=== PATIENT | female | born 1950 | race Caucasian/White ===

== ENCOUNTER 2017-01-21 10:39 | Outpatient (CLI) | payer MEDICARE, BC | END 2017-01-21 10:40 | disposition home or self-care (01) | DX: E11.9 Type 2 diabetes mellitus without complications (principal); Z79.899 Other long term (current) drug therapy; K21.9 Gastro-esophageal reflux disease without esophagitis; I10 Essential (primary) hypertension; E78.2 Mixed hyperlipidemia ==

== ENCOUNTER 2017-01-23 08:13 | Outpatient (CLI) | payer MEDICARE, BC | END 2017-01-23 08:14 | disposition home or self-care (01) | DX: E11.9 Type 2 diabetes mellitus without complications (principal); Z79.899 Other long term (current) drug therapy; E78.2 Mixed hyperlipidemia; K21.9 Gastro-esophageal reflux disease without esophagitis; N18.9 Chronic kidney disease, unspecified; I12.9 Hypertensive chronic kidney disease with stage 1 through stage 4 chronic kidney disease, or unspecified chronic kidney disease ==

== ENCOUNTER 2017-02-13 11:42 | Outpatient (CLI) | payer MEDICARE, BC | END 2017-02-13 11:43 | disposition home or self-care (01) | DX: M17.11 Unilateral primary osteoarthritis, right knee (principal) ==

== ENCOUNTER 2017-03-19 10:05 | Outpatient (CLI) | payer MEDICARE, BC ==
--- NOTE | 2017-04-03 16:14 | Mammography Report ---
DIGITAL SCREENING MAMMOGRAM: 03/19/2017 CLINICAL INDICATION: A 66-year-old, for screening. COMPARISON: The patient reports having had previous mammograms in [place], but cannot recall where they were performed. If records in your office indicate where these were performed, we would be happ y to try to obtain them for direct comparison. Otherwise, this will serve as a new baseline. TECHNIQUE: Routine CC and MLO projections were obtained of the breasts. FINDINGS: The breasts demonstrate scattered fibroglandular densities bilaterally. There is bilateral subareolar nodularity. Further evaluation with spot compression views and possible bilateral ultraso und is recommended. A few coarse, typically benign calcifications are present. No suspicious clustere d microcalcifications, or regions of architectural distortion are identified. IMPRESSION: INCOMPLETE EXAMINATION. RECOMMENDATION: ADDITIONAL EVALUATION OF BOTH BREASTS WITH SPOT COMPRESSION VIEWS AND POSSIBLE ULTRAS OUNDS. BIRADS CATEGORY 0-INCOMPLETE. STANDARD QUALIFYING STATEMENTS 1. This examination was reviewed with the aid of Computer-Aided Detection (CAD). 2. A negative or benign imaging report should not delay biopsy if clinically suspicious findings are present. Consider surgical consultation if warranted. More than 5% of cancers are not identified by alejandra osborne. 3. Dense breasts may obscure an underlying neoplasm. JOB #: [id number] EXT JOB #:[id number]
== END 2017-03-19 10:06 | disposition home or self-care (01) ==
LOC: DI.S 10:05
PROVIDERS: ATTEND Internal Medicine
DX: Z12.31 Encounter for screening mammogram for malignant neoplasm of breast (principal); N63 Unspecified lump in breast
CPT/HCPCS: 77067

== ENCOUNTER 2017-04-10 08:13 | Outpatient (CLI) | payer MEDICARE, BC | END 2017-04-10 08:14 | disposition home or self-care (01) | LOC: LAB.F 08:13 | PROVIDERS: ATTEND Internal Medicine | DX: E11.65 Type 2 diabetes mellitus with hyperglycemia (principal) | CPT/HCPCS: 36415; 82947 ==

== ENCOUNTER 2017-05-20 13:56 | Outpatient (CLI) | payer MEDICARE, BC ==
--- NOTE | 2017-05-20 15:12 | Ultrasound Report ---
RIGHT BREAST ULTRASOUND: 05/20/2017 CLINICAL INDICATION: Persistent nodule on diagnostic mammogram. TECHNIQUE: Real-time scanning was performed with financial representative static images obtained. FINDINGS: Ultrasound of the right lower breast was performed. At the 6 o'clock position, 1 cm from the nipple, there is a simple cyst, measuring 8 x 7 x 6 mm. No sonographically suspicious findings a re identified. IMPRESSION: BENIGN FINDINGS, WITH A SIMPLE CYST ACCOUNTING FOR THE MAMMOGRAPHIC ABNORMALITY. RECOMMENDATION: Routine annual screening unless otherwise clinically indicated. BIRADS CATEGORY 2 - BENIGN FINDINGS. JOB #: [id number] EXT JOB #:[id number]
--- NOTE | 2017-05-20 15:13 | Mammography Report ---
DIAGNOSTIC BILATERAL MAMMOGRAM: 05/20/2017 CLINICAL INDICATION: Bilateral retroareolar nodules. TECHNIQUE: Bilateral true lateral and spot compression views. COMPARISON: 03/19/2017 FINDINGS: The breasts again demonstrate scattered fibroglandular densities bilaterally. In the left breast, the questioned retroareolar nodularity dissipates on additional compression. No underlying mass lesion or architectural distortion is seen. In the right breast, a 7-mm nodule persists in the 6 o'clock subareolar position. No associated calc ifications are seen. Please also refer to right breast ultrasound of the same day. IMPRESSION: BENIGN FINDINGS. RECOMMENDATION: Routine annual screening unless otherwise clinically indicated. BIRADS CATEGORY 2 - BENIGN FINDINGS. STANDARD QUALIFYING STATEMENTS 1. This examination was reviewed with the aid of Computer-Aided Detection (CAD). 2. A negative or benign imaging report should not delay biopsy if clinically suspicious findings are present. Consider surgical consultation if warranted. More than 5% of cancers are not identified by i maging. 3. Dense breasts may obscure an underlying neoplasm. JOB #: [id number] EXT JOB #:[id number]
== END 2017-05-20 13:57 | disposition home or self-care (01) ==
LOC: DI 13:56
PROVIDERS: ATTEND Internal Medicine
DX: N60.01 Solitary cyst of right breast (principal)
CPT/HCPCS: 76642; G0204; 77066

== ENCOUNTER 2017-06-14 09:35 | Outpatient (CLI) | payer MEDICARE, BC ==
[2017-06-14 18:55] LABS: HEMOGLOBIN A1C 0.64 g/dL
== END 2017-06-14 09:36 | disposition home or self-care (01) ==
LOC: LAB.F 09:35
PROVIDERS: ATTEND Internal Medicine
DX: E11.65 Type 2 diabetes mellitus with hyperglycemia (principal)
CPT/HCPCS: 36415; 83036

== ENCOUNTER 2017-08-28 09:48 | Outpatient (CLI) | payer MEDICARE, BC ==
[2017-08-28 17:36] LABS: BASOPHILS % (AUTO) 0.7 %; EOSINOPHILS # (AUTO) 0.2 10^3/uL (0.0-0.7); EOSINOPHILS % (AUTO) 3.3 %; HCT - HEMATOCRIT 34.8 % (37.0-47.0); HGB - HEMOGLOBIN 11.2 g/dL (12.0-16.0); LYMPHOCYTES % (AUTO) 30.6 %; MEAN CORPUSCULAR HEMOGLOBIN 25.5 pg (27.0-31.0); MEAN CORPUSCULAR HGB CONC 32.3 g/dL (32.0-36.0); MEAN PLATELET VOLUME 9.2 fL (7.9-10.8); MONOCYTES # (AUTO) 0.7 10^3/uL (0.0-1.0); MONOCYTES % (AUTO) 9.9 %; NEUTROPHILS # (AUTO) 3.7 10^3/uL (1.5-6.6); NEUTROPHILS % (AUTO) 55.5 %; NUCLEATED RED BLOOD CELLS AUTO 0.1 /100WBC; RED CELL DISTRIBUTION WIDTH 14.8 % (12.0-15.0); UNCORRECTED WHITE BLOOD COUNT 6.6 x10^3/uL; WHITE BLOOD COUNT 6.6 x10^3/uL (4.8-10.8)
[2017-08-28 18:13] LABS: HEMOGLOBIN A1C 0.68 g/dL
[2017-08-28 18:33] LABS: ALBUMIN/GLOBULIN RATIO 0.8 (1.0-2.2); BILIRUBIN,TOTAL 0.4 mg/dL (0.2-1.0); CALCIUM 8.9 mg/dL (8.5-10.3); CREATININE 1.2 mg/dL (0.4-1.0); POTASSIUM 4.7 mmol/L (3.5-5.0); TOTAL PROTEIN 7.2 g/dL (6.7-8.2)
== END 2017-08-28 09:49 | disposition home or self-care (01) ==
LOC: LAB.F 09:48
PROVIDERS: ATTEND Internal Medicine
DX: E11.9 Type 2 diabetes mellitus without complications (principal); I10 Essential (primary) hypertension
CPT/HCPCS: 36415; 80053; 83036; 85025

== ENCOUNTER 2017-09-11 10:12 | Outpatient (CLI) | payer MEDICARE, BC ==
[2017-09-11 17:53] LABS: IMMATURE RETIC FRACTION 0.44; RED BLOOD COUNT 4.38 10^6/uL (4.20-5.40)
== END 2017-09-11 10:13 | disposition home or self-care (01) ==
LOC: LAB.F 10:12
PROVIDERS: ATTEND Internal Medicine
DX: D64.9 Anemia, unspecified (principal)
CPT/HCPCS: 36415; 82607; 82728; 83010; 85044; 86880

== ENCOUNTER 2017-10-25 08:00 | Outpatient (CLI) | payer MEDICARE, BC | END 2017-10-25 23:59 | disposition home or self-care (01) | LOC: LAB.R 08:00 | PROVIDERS: ATTEND Surgery | DX: D64.9 Anemia, unspecified (principal) | CPT/HCPCS: 82270 ==

== ENCOUNTER 2017-11-01 06:12 | Day surgery (SDC) | payer MEDICARE, BC ==
[2017-11-01] MEDS ORDERED: LACTATED RINGERS 1,000 ML IV ONE (06:59)
[2017-11-01] MEDS ORDERED: BENZOCAINE/TETRACAINE/BUTAMBEN SPRAY 56 GM TOP ONE (07:43)
[2017-11-01] MEDS ORDERED: LIDOCAINE-MPF 2% 5 ML VIAL IM ONE (08:04)
[2017-11-01] MEDS ORDERED: PROPOFOL 200 MG/20 ML VIAL IVP ONE (08:04)
[2017-11-01 08:32] VITALS: BP 149/80
== END 2017-11-01 06:13 | disposition home or self-care (01) ==
LOC: SDS 06:12
PROVIDERS: ATTEND Surgery
PROC: 0DB68ZX Excision of Stomach, Via Natural or Artificial Opening Endoscopic, Diagnostic (ICD-10-PCS; 2017-11-01)
PROC: 0DB48ZX Excision of Esophagogastric Junction, Via Natural or Artificial Opening Endoscopic, Diagnostic (ICD-10-PCS; 2017-11-01)
PROC: 0DB98ZX Excision of Duodenum, Via Natural or Artificial Opening Endoscopic, Diagnostic (ICD-10-PCS; principal; 2017-11-01 07:30)
DX: D50.9 Iron deficiency anemia, unspecified (principal); E11.9 Type 2 diabetes mellitus without complications; I10 Essential (primary) hypertension; E78.5 Hyperlipidemia, unspecified; Z98.84 Bariatric surgery status; F17.290 Nicotine dependence, other tobacco product, uncomplicated
CPT/HCPCS: 43239; A9270; J7120

== ENCOUNTER 2018-01-02 09:25 | Outpatient (CLI) | payer MEDICARE, BC ==
[2018-01-02 17:32] LABS: BILIRUBIN,URINE NEGATIVE (NEGATIVE); GLUCOSE, URINE (UA) NEGATIVE (NEGATIVE); KETONES,URINE (UA) NEGATIVE (NEGATIVE); LEUKOCYTE ESTERASE, URINE SMALL (NEGATIVE); NITRITE,URINE POSITIVE (NEGATIVE); OCCULT BLOOD,URINE TRACE-INTA (NEGATIVE); PH,URINE 5.5 PH (5.0-7.5); PROTEIN,URINE 100 mg/dL (NEGATIVE); UROBILINOGEN,URINE 0.2 (NORMAL) E.U./dL (NORMAL)
[2018-01-02 17:33] LABS: CLARITY,URINE CLOUDY (CLEAR)
[2018-01-02 17:45] LABS: BASOPHILS # (AUTO) 0.1 10^3/uL (0.0-0.1); BASOPHILS % (AUTO) 1.2 %; EOSINOPHILS # (AUTO) 0.2 10^3/uL (0.0-0.7); EOSINOPHILS % (AUTO) 3.2 %; HGB - HEMOGLOBIN 11.3 g/dL (12.0-16.0); LYMPHOCYTES % (AUTO) 28.4 %; MEAN CORPUSCULAR HEMOGLOBIN 25.2 pg (27.0-31.0); MEAN CORPUSCULAR HGB CONC 31.2 g/dL (32.0-36.0); MEAN CORPUSCULAR VOLUME 80.8 fL (81.0-99.0); MEAN PLATELET VOLUME 9.3 fL (7.9-10.8); MONOCYTES # (AUTO) 0.5 10^3/uL (0.0-1.0); MONOCYTES % (AUTO) 6.9 %; NEUTROPHILS # (AUTO) 4.2 10^3/uL (1.5-6.6); NEUTROPHILS % (AUTO) 60.3 %; PLT - PLATELET COUNT 242 10^3/uL (130-450); RED BLOOD COUNT 4.46 10^6/uL (4.20-5.40); RED CELL DISTRIBUTION WIDTH 18.5 % (12.0-15.0)
[2018-01-02 17:50] LABS: HB2 TOTAL 12.2 g/dL; HEMOGLOBIN A1C 0.63 g/dL; HEMOGLOBIN A1C % 6.9 % (4.6-6.2)
[2018-01-02 18:21] LABS: RBC,URINE 0-5 /HPF (0-5); SQUAMOUS EPITHELIAL CELL,UR RARE Squamous (<= Few); WBC CLUMPS,URINE PRESENT
[2018-01-02 18:22] LABS: BACTERIA,URINE Many /HPF (None Seen)
== END 2018-01-02 09:26 | disposition home or self-care (01) ==
LOC: LAB.F 09:25
PROVIDERS: ATTEND Internal Medicine
DX: D64.9 Anemia, unspecified (principal); E11.9 Type 2 diabetes mellitus without complications; I10 Essential (primary) hypertension; N20.0 Calculus of kidney; Z79.899 Other long term (current) drug therapy
CPT/HCPCS: 36415; 81001; 81003; 82728; 83036; 85025; 87086

== ENCOUNTER 2018-01-28 08:51 | Emergency (ER) | payer MEDICARE, BC ==
[2018-01-28] MEDS ORDERED: DEXAMETHASONE 10 MG/ML VIAL IVP STA (09:30)
[2018-01-28] MEDS ORDERED: diphenhydrAMINE INJ 50 MG/ML VIAL IVP STA (09:30)
--- NOTE | 2018-01-28 09:36 | ED Physician Documentation ---
History of Present Illness - Stated complaint Stated Complaint: FACE SWELLING/CANT SWALLOW - Chief complaint Chief Complaint: Allergic Rx - History obtained from History obtained from: Patient - History of Present Illness Timing: Today (Present when she awoke.) - Additonal information Additional information: The patient is a 67-year-old female with history of hypertension, on Benazepril , who awoke this morning with facial swelling and swelling in her throat. She denies shortness of breath, but she does report difficulty swallowing. She reports having similar swelling involving mostly the right side of her face one week ago, but she did not have throat involvement at that time. Her symptoms are slightly better now than when she first awoke this morning. Review of Systems Constitutional: denies: Fever Eyes: denies: Irritation Nose: denies: Congestion Throat: reports: Sore throat Cardiac: denies: Chest pain / pressure Respiratory: denies: Dyspnea, Cough GI: denies: Abdominal Pain, Nausea, Vomiting Skin: denies: Rash Musculoskeletal: denies: Extremity swelling Neurologic: denies: Headache PD PAST MEDICAL HISTORY - Past Medical History Cardiovascular: Hypertension Respiratory: None Endocrine/Autoimmune: Type 2 diabetes GI: GERD : Renal insuffiency HEENT: Chronic vision loss Psych: Depression Musculoskeletal: Rheumatoid arthritis Derm: None - Past Surgical History Ortho: Carpal Tunnel surgery /REGIONAL CRA: Other - Present Medications Home Medications: Ambulatory Orders Medication Instructions Recorded Confirmed Benazepril HCl 10 mg PO DAILY 10/28/17 11/01/17 Gemfibrozil 600 mg PO BID 10/28/17 11/01/17 Glimepiride 1 mg PO DAILY 10/28/17 11/01/17 Omeprazole [PriLOSEC] 20 mg PO DAILY 10/28/17 11/01/17 Atorvastatin [Lipitor] 1 DAILY 11/01/17 Blood Pressure Test Kit-Large 1 each MC TID #1 kit 01/28/18 [Blood Pressure Monitor] Losartan [Cozaar] 50 mg PO DAILY #20 tablet 01/28/18 - Allergies Allergies/Adverse Reactions: Allergies Allergy/AdvReac Type Severity Reaction Status Date / Time Penicillins Allergy Hives Verified 10/28/17 16:52 PD ED PE NORMAL - Vitals Vital signs reviewed: Yes (borderline systolic hypertension initially.) - General General: Alert and oriented X 3, Well developed/nourished, Other (Repeatedly trying to clear her throat.) - HEENT HEENT: Atraumatic, EOMI, Ears normal, Other (There is lower facial swelling, much more on the right than the left. Oropharynx is edematous with significant swelling of the uvula and soft palate.) - Neck Neck: Supple, no meningeal sign, No adenopathy - Cardiac Cardiac: RRR - Respiratory Respiratory: Clear bilaterally - Abdomen Abdomen: Soft, Non tender - Derm Derm: No rash - Extremities Extremities: No edema, No calf tenderness / cord - Neuro Neuro: Alert and oriented X 3, No motor deficit Results - Vitals Vitals: Vital Signs - 24 hr 01/28/18 01/28/18 08:56 12:42 Temperature 35.7 C L 36.8 C Heart Rate 68 68 Respiratory 16 18 Rate Blood Pressure 137/67 H 129/67 O2 Saturation 97 94 Oxygen O2 Source Room air PD MEDICAL DECISION MAKING - ED course Complexity details: re-evaluated patient, considered differential, d/w patient, d/w PMD ED course: The patient's presentation is most consistent with angioedema caused by JESSY inhibitor medication. Treatment in the emergency department included administration of dexamethasone 10 mg IV, and Benadryl 50 mg IV. She was monitored for several hours with airway equipment on standby. Her angioedema gradually improved over the course of the next 3 hours. I discussed her condition with Fartun Estrada in Dr. Abdi's office. After that discussion, the patient's antihypertensive medication was changed to losartan 50 mg daily. The patient is discharged with instructions to discontinue benazepril, and replace her antihypertensive medication with losartan. She was also instructed to check her blood pressure 3 times daily and record the results for Dr. Abdi. I discussed with her potentially worrisome signs or symptoms that should prompt reevaluation in the emergency department. Departure - Departure Disposition: 01 Home, Self Care Clinical Impression: Angio-edema Qualifiers: Encounter type: initial encounter Qualified Code(s): T78.3XXA - Angioneurotic edema, initial encounter Condition: Stable Instructions: ED Angioedema Follow-Up: Joe Abdi MD [Primary Care Provider] - Prescriptions: Blood Pressure Test Kit-Large [Blood Pressure Monitor] 1 each MC TID #1 kit Losartan [Cozaar] 50 mg PO DAILY #20 tablet Comments: Discontinue benazepril. Take losartan 50 mg daily as prescribed. Check your blood pressure 3 times daily and record for Dr. Abdi. Call to schedule follow-up appointment. Return to the emergency department if you develop increasing facial swelling, difficulty swallowing, shortness of breath, or otherwise worsening symptoms. Discharge Date/Time: 01/28/18 13:10
[2018-01-28 12:43] VITALS: BP 129/67
== END 2018-01-28 13:10 | disposition home or self-care (01) ==
LOC: ED 08:51
DX: T78.3XXA Angioneurotic edema, initial encounter (principal); I10 Essential (primary) hypertension; E11.9 Type 2 diabetes mellitus without complications; Z79.84 Long term (current) use of oral hypoglycemic drugs
CPT/HCPCS: 96374; 99283; J1200

== ENCOUNTER 2018-03-12 10:06 | Outpatient (CLI) | payer MEDICARE, BC ==
[2018-03-12 18:27] LABS: CHOL/HDL RATIO 4.8 (<4.4); CHOLESTEROL 150 mg/dL; HDL CHOLESTEROL 31 mg/dL; LDL CHOLESTEROL,CALCULATED 68 mg/dL; LDL/HDL RATIO 2.2 (<4.4); VLDL CHOLESTEROL 51 mg/dL
== END 2018-03-12 10:07 | disposition home or self-care (01) ==
LOC: LAB.F 10:06
PROVIDERS: ATTEND Internal Medicine
DX: D64.9 Anemia, unspecified (principal); E78.5 Hyperlipidemia, unspecified
CPT/HCPCS: 36415; 80061; 82728; 83721; 85025

== ENCOUNTER 2018-03-14 11:12 | Outpatient (CLI) | payer MEDICARE, BC ==
[2018-03-14 18:11] LABS: BASOPHILS % (AUTO) 0.6 %; EOSINOPHILS # (AUTO) 0.2 10^3/uL (0.0-0.7); EOSINOPHILS % (AUTO) 2.4 %; HGB - HEMOGLOBIN 12.7 g/dL (12.0-16.0); LYMPHOCYTES # (AUTO) 2.5 10^3/uL (1.5-3.5); LYMPHOCYTES % (AUTO) 33.8 %; MEAN CORPUSCULAR HEMOGLOBIN 29.1 pg (27.0-31.0); MEAN CORPUSCULAR HGB CONC 33.1 g/dL (32.0-36.0); MEAN PLATELET VOLUME 8.7 fL (7.9-10.8); MONOCYTES # (AUTO) 0.5 10^3/uL (0.0-1.0); MONOCYTES % (AUTO) 6.5 %; NEUTROPHILS # (AUTO) 4.2 10^3/uL (1.5-6.6); NEUTROPHILS % (AUTO) 56.7 %; PLT - PLATELET COUNT 249 10^3/uL (130-450); RED BLOOD COUNT 4.38 10^6/uL (4.20-5.40); RED CELL DISTRIBUTION WIDTH 16.4 % (12.0-15.0); WHITE BLOOD COUNT 7.4 x10^3/uL (4.8-10.8)
== END 2018-03-14 11:13 | disposition home or self-care (01) ==
LOC: LAB.F 11:12
PROVIDERS: ATTEND Internal Medicine
DX: D64.9 Anemia, unspecified (principal)
CPT/HCPCS: 36415; 85025

== ENCOUNTER 2018-04-24 11:28 | Outpatient (CLI) | payer MEDICARE, BC ==
[2018-04-24] MEDS ORDERED: REGADENOSON 0.4 MG/5 ML SYRINGE IVP ONE ×2 (13:30→15:16)
--- NOTE | 2018-04-24 16:58 | Nuclear Medicine Report ---
Procedure Date: 04/24/2018 Accession Number: [id number] / [id number] Procedure: NM - Myocardial Perfusion STR/RST CPT Code: FULL RESULT: EXAM: SINGLE-ISOTOPE PHARMACOLOGICAL STRESS TEST WITH REGADENOSON. SINGLE-ISOTOPE AND ONE-DAY REST/STRESS MYOCARDIAL PERFUSION SCANS WITH TOMOGRAPHIC IMAGING, QUANTITATIVE ANALYSIS, WALL MOTION ANALYSIS AND CALCULATION OF EJECTION FRACTION. EXAM DATE: 04/24/2018 03:19 PM. CLINICAL HISTORY: HYPERLIPIDEMIA. COMPARISON: None. TECHNIQUE: After the intravenous administration of 9.2 mCi of Tc-99m sestamibi, a rest myocardial perfusion scan was done with tomography. Motion correction was applied when appropriate. After an appropriate delay, pharmacological stress was performed with the infusion of 0.4 mg regadenoson per protocol. According to protocol, 42.1 mCi of Tc-99m sestamibi was injected for stress myocardial perfusion scan. Motion correction was applied when appropriate. Gated tomographic images were obtained for wall motion analysis and computation of left ventricular ejection fraction. FINDINGS: Perfusion images: Left ventricular chamber size is normal at rest and unchanged at stress. No convincing fixed perfusion deficits. Probable mild apical third inferior wall diaphragmatic attenuation artifact and mid anterior wall breast attenuation artifact. No convincing reversible perfusion deficits. Gated images: No convincing focal wall motion abnormality. The left ventricular ejection fraction is estimated at 65% (normal > 50%). IMPRESSION: 1. No convincing reversible perfusion deficits to indicate stress-induced ischemia. 2. No convincing fixed perfusion deficits. 3. Left ventricular ejection fraction of 65% (normal > 50%). RADIA
--- NOTE | 2018-04-24 17:17 | CARDIAC PROCEDURE NOTE ---
DATE OF SERVICE: 04/24/2018 Physician: MG Chin PCP: Joe Abdi M.D. PROCEDURE: Pharmacologic cardiac stress test. PROCEDURE REASON: Preoperative orthopedic surgery. CARDIAC RISK FACTORS: Age, hypertension, hyperlipidemia, and diabetes. PREVIOUS CARDIAC PROCEDURES: MPS. CLINICAL HISTORY: A 67-year-old female without known coronary artery disease. INITIAL RESTING VITAL SIGNS: Blood pressure 140/74, heart rate 60, height 64 inches, weight 245 pounds, BMI 40.95. PROCEDURE AND FINDINGS: Patient identity and date verified. Consent signed. Pharmaceutical checked. Pharmacologic stress testing was performed with Lexiscan at a dose of 0.4 mg over 10 seconds. The heart rate increased to 89 beats per minute from the infusion. Blood pressure response was normal during the stress procedure. The patient developed mild infusion-related symptoms, which include shortness of air, and resolved spontaneously. The resting ECG demonstrated normal sinus rhythm with no ST or T-wave changes. There was no ST depression with stress. There was occasional PAC ectopy. FINAL IMPRESSION 1. Negative electrocardiogram for ischemia in the setting of vasodilator stress. 2. Nondiagnostic stress test for angina. 3. A few premature atrial contractions. 4. Await myocardial perfusion report. TD: 04/24/2018 14:27
[2018-04-24 18:11] VITALS: BP 140/74
== END 2018-04-24 11:29 | disposition home or self-care (01) ==
LOC: DI 11:28
PROVIDERS: ATTEND Internal Medicine
DX: Z01.810 Encounter for preprocedural cardiovascular examination (principal); E78.5 Hyperlipidemia, unspecified; I10 Essential (primary) hypertension; E11.9 Type 2 diabetes mellitus without complications
CPT/HCPCS: 78452; 93017; A9500; J2785

== ENCOUNTER 2019-03-23 11:34 | Outpatient (CLI) | payer MEDICARE, BC ==
[2019-03-23 17:09] LABS: BASOPHILS # (AUTO) 0.1 10^3/uL (0.0-0.1); BASOPHILS % (AUTO) 0.9 %; EOSINOPHILS # (AUTO) 0.3 10^3/uL (0.0-0.7); EOSINOPHILS % (AUTO) 5.1 %; HGB - HEMOGLOBIN 12.8 g/dL (12.0-16.0); LYMPHOCYTES % (AUTO) 30.8 %; MEAN CORPUSCULAR HEMOGLOBIN 29.4 pg (27.0-31.0); MONOCYTES # (AUTO) 0.4 10^3/uL (0.0-1.0); MONOCYTES % (AUTO) 6.7 %; NEUTROPHILS # (AUTO) 3.6 10^3/uL (1.5-6.6); NEUTROPHILS % (AUTO) 56.5 %; PLT - PLATELET COUNT 257 10^3/uL (130-450); RED BLOOD COUNT 4.36 10^6/uL (4.20-5.40); RED CELL DISTRIBUTION WIDTH 13.5 % (12.0-15.0); WHITE BLOOD COUNT 6.4 x10^3/uL (4.8-10.8)
[2019-03-23 17:30] LABS: ALBUMIN 3.7 g/dL (3.2-5.5); ALKALINE PHOSPHATASE 130 IU/L (42-121); ALT ALANINE AMINOTRANSFERASE 11 IU/L (10-60); AST ASPARTATE AMINOTRANSFERASE 21 IU/L (10-42); BILIRUBIN,TOTAL 0.7 mg/dL (0.2-1.0); BUN - BLOOD UREA NITROGEN 27 mg/dL (6-20); CALCIUM 9.1 mg/dL (8.5-10.3); CARBON DIOXIDE - CO2 24 mmol/L (21-32); CHLORIDE 104 mmol/L (101-111); CHOL/HDL RATIO 4.4 (<4.4); CHOLESTEROL 157 mg/dL; CREATININE 1.4 mg/dL (0.4-1.0); GFR - MDRD 37 (>89); GLUCOSE 82 mg/dL (70-100); HDL CHOLESTEROL 36 mg/dL; LDL CHOLESTEROL,CALCULATED 67 mg/dL; LDL/HDL RATIO 1.9 (<4.4); SODIUM 141 mmol/L (135-145); TOTAL PROTEIN 7.3 g/dL (6.7-8.2); VLDL CHOLESTEROL 54 mg/dL
[2019-03-23 18:01] LABS: HB2 TOTAL 13.4 g/dL; HEMOGLOBIN A1C 0.43 g/dL; HEMOGLOBIN A1C % 5.1 % (4.6-6.2)
== END 2019-03-23 11:35 | disposition home or self-care (01) ==
LOC: LAB.F 11:34
PROVIDERS: ATTEND Nurse Practitioner
DX: E11.22 Type 2 diabetes mellitus with diabetic chronic kidney disease (principal); I12.9 Hypertensive chronic kidney disease with stage 1 through stage 4 chronic kidney disease, or unspecified chronic kidney disease; N18.9 Chronic kidney disease, unspecified; E78.5 Hyperlipidemia, unspecified
CPT/HCPCS: 36415; 80053; 80061; 83036; 83721; 84443; 85025

== ENCOUNTER 2019-04-10 11:17 | Outpatient (CLI) | payer MEDICARE, BC ==
[2019-04-10 17:55] LABS: ALBUMIN 3.7 g/dL (3.2-5.5); BILIRUBIN,TOTAL 0.5 mg/dL (0.2-1.0); CALCIUM 9.1 mg/dL (8.5-10.3); CREATININE 1.4 mg/dL (0.4-1.0); TOTAL PROTEIN 7.5 g/dL (6.7-8.2)
== END 2019-04-10 11:18 | disposition home or self-care (01) ==
LOC: LAB.S 11:17
PROVIDERS: ATTEND Nurse Practitioner
DX: E11.22 Type 2 diabetes mellitus with diabetic chronic kidney disease (principal); N18.9 Chronic kidney disease, unspecified
CPT/HCPCS: 36415; 80053

== ENCOUNTER 2019-06-24 08:06 | Outpatient (CLI) | payer MEDICARE, BC ==
--- NOTE | 2019-06-24 14:36 | Ultrasound Report ---
Reason: CHRONIC KIDNEY DISEASE, STAGE III Procedure Date: 06/24/2019 Accession Number: [id number] / [id number] Procedure: US - Retroperitoneal CPT Code: FULL RESULT: EXAM: RENAL ULTRASOUND EXAM DATE: 06/24/2019 09:12 AM. CLINICAL HISTORY: CHRONIC KIDNEY DISEASE, STAGE III. COMPARISON: None. TECHNIQUE: Real-time scanning was performed with static images obtained. FINDINGS: Right Kidney: Difficult to image 9.8 x 4.2 x 3.7 cm. Normal echotexture with no stones, contour-deforming masses, or hydronephrosis. Left Kidney: 11.8 x 6.4 x 5.1 cm. Normal echotexture with no stones, contour-deforming masses, or hydronephrosis. Bladder: Bilateral jets seen. The prevoid bladder volume was 307 cc. The postvoid bladder volume was 0 cc. Other: None. IMPRESSION: Unremarkable renal ultrasound. RADIA
== END 2019-06-24 08:07 | disposition home or self-care (01) ==
LOC: DI 08:06
PROVIDERS: ATTEND Internal Medicine Nephrology
DX: N18.3 Chronic kidney disease, stage 3 (moderate) (principal)
CPT/HCPCS: 76770

== ENCOUNTER 2019-12-04 16:02 | Outpatient (CLI) | payer MEDICARE, BC ==
[2019-12-04 17:49] LABS: BILIRUBIN,URINE NEGATIVE (NEGATIVE); GLUCOSE, URINE (UA) NEGATIVE (NEGATIVE); KETONES,URINE (UA) NEGATIVE (NEGATIVE); LEUKOCYTE ESTERASE, URINE TRACE (NEGATIVE); NITRITE,URINE NEGATIVE (NEGATIVE); OCCULT BLOOD,URINE NEGATIVE (NEGATIVE); PH,URINE 5.5 PH (5.0-7.5); PROTEIN,URINE 100 mg/dL (NEGATIVE); UROBILINOGEN,URINE 0.2 (NORMAL) E.U./dL (NORMAL)
[2019-12-04 17:51] LABS: BACTERIA,URINE Moderate /HPF (None Seen); CLARITY,URINE CLEAR (CLEAR); RBC,URINE None Seen /HPF (0-5); SQUAMOUS EPITHELIAL CELL,UR NONE SEEN (<= Few)
[2019-12-04 18:30] LABS: CREATININE,URINE 54.6 mg/dL; MICROALBUM/CREATININE RATIO,UR 3100.7 ug/mg (<30.0); MICROALBUMIN,URINE 169.3 mg/dL (0-300.0)
== END 2019-12-04 16:03 | disposition home or self-care (01) ==
LOC: LAB.S 16:02
PROVIDERS: ATTEND Internal Medicine Nephrology
DX: N18.3 Chronic kidney disease, stage 3 (moderate) (principal)
CPT/HCPCS: 81001; 82043; 82570; 87077; 87086; 87181

== ENCOUNTER 2019-12-09 09:06 | Outpatient (CLI) | payer MEDICARE, BC ==
[2019-12-09 17:20] LABS: BASOPHILS # (AUTO) 0.1 10^3/uL (0.0-0.1); BASOPHILS % (AUTO) 0.8 %; EOSINOPHILS # (AUTO) 0.2 10^3/uL (0.0-0.7); EOSINOPHILS % (AUTO) 3.4 %; HGB - HEMOGLOBIN 12.4 g/dL (12.0-16.0); LYMPHOCYTES # (AUTO) 1.9 10^3/uL (1.5-3.5); LYMPHOCYTES % (AUTO) 32.3 %; MEAN CORPUSCULAR HEMOGLOBIN 29.2 pg (27.0-31.0); MEAN CORPUSCULAR HGB CONC 31.5 g/dL (32.0-36.0); MEAN CORPUSCULAR VOLUME 92.7 fL (81.0-99.0); MEAN PLATELET VOLUME 11.1 fL (7.9-10.8); MONOCYTES # (AUTO) 0.5 10^3/uL (0.0-1.0); MONOCYTES % (AUTO) 7.9 %; NEUTROPHILS # (AUTO) 3.3 10^3/uL (1.5-6.6); NEUTROPHILS % (AUTO) 55.3 %; PLT - PLATELET COUNT 226 10^3/uL (130-450); RED BLOOD COUNT 4.25 10^6/uL (4.20-5.40); WHITE BLOOD COUNT 5.9 x10^3/uL (4.8-10.8)
[2019-12-09 17:39] LABS: ALBUMIN 3.5 g/dL (3.2-5.5); CALCIUM 9.1 mg/dL (8.5-10.3); CREATININE 1.5 mg/dL (0.4-1.0); MAGNESIUM 1.8 mg/dL (1.7-2.8); PHOSPHORUS 4.3 mg/dL (2.5-4.6)
== END 2019-12-09 09:07 | disposition home or self-care (01) ==
LOC: LAB.S 09:06
PROVIDERS: ATTEND Internal Medicine Nephrology
DX: N18.3 Chronic kidney disease, stage 3 (moderate) (principal)
CPT/HCPCS: 36415; 80069; 83735; 83970; 85025

== ENCOUNTER 2020-02-18 08:52 | Outpatient (CLI) | payer MEDICARE, BC ==
[2020-02-18 09:30] LABS: BILIRUBIN,URINE NEGATIVE (NEGATIVE); GLUCOSE, URINE (UA) NEGATIVE (NEGATIVE); KETONES,URINE (UA) NEGATIVE (NEGATIVE); LEUKOCYTE ESTERASE, URINE SMALL (NEGATIVE); NITRITE,URINE POSITIVE (NEGATIVE); OCCULT BLOOD,URINE TRACE-INTA (NEGATIVE); PH,URINE 5.5 PH (5.0-7.5); PROTEIN,URINE >=300 mg/dL (NEGATIVE); UROBILINOGEN,URINE 0.2 (NORMAL) E.U./dL (NORMAL)
[2020-02-18 09:30] LABS: ALBUMIN 3.6 g/dL (3.2-5.5); BILIRUBIN,TOTAL 0.5 mg/dL (0.2-1.0); CALCIUM 8.8 mg/dL (8.5-10.3); CREATININE 1.5 mg/dL (0.4-1.0); PHOSPHORUS 4.6 mg/dL (2.5-4.6); TOTAL PROTEIN 7.2 g/dL (6.7-8.2)
[2020-02-18 09:40] LABS: CLARITY,URINE SL. CLOUDY (CLEAR)
[2020-02-18 09:41] LABS: BACTERIA,URINE Moderate /HPF (None Seen); RBC,URINE 0-5 /HPF (0-5); SQUAMOUS EPITHELIAL CELL,UR FEW Squamous (<= Few)
[2020-02-18 10:44] LABS: CREATININE,URINE 83.2 mg/dL; MICROALBUM/CREATININE RATIO,UR 2622.6 ug/mg (<30.0); MICROALBUMIN,URINE 218.2 mg/dL (0-300.0)
== END 2020-02-18 08:53 | disposition home or self-care (01) ==
LOC: LAB 08:52
PROVIDERS: ATTEND Internal Medicine Nephrology
DX: N18.3 Chronic kidney disease, stage 3 (moderate) (principal); N39.0 Urinary tract infection, site not specified; Z87.440 Personal history of urinary (tract) infections
CPT/HCPCS: 36415; 80053; 81001; 82043; 82306; 82570; 83735; 83970; 84100; 87077; 87086; 87181

== ENCOUNTER 2020-03-11 11:06 | Outpatient (CLI) | payer MEDICARE, BC | END 2020-03-11 11:07 | disposition EMS.NT | LOC: EMS 11:06 | PROVIDERS: ATTEND Surgery | DX: Z03.89 Encounter for observation for other suspected diseases and conditions ruled out (principal) ==

== ENCOUNTER 2020-08-10 09:39 | Outpatient (CLI) | payer MEDICARE, BC ==
[2020-08-10 10:00] LABS: ALBUMIN 3.5 g/dL (3.2-5.5); BILIRUBIN,TOTAL 0.7 mg/dL (0.2-1.0); CALCIUM 8.7 mg/dL (8.5-10.3); CREATININE 1.5 mg/dL (0.4-1.0); TOTAL PROTEIN 7.1 g/dL (6.7-8.2)
== END 2020-08-10 09:40 | disposition home or self-care (01) ==
LOC: LAB 09:39
PROVIDERS: ATTEND Nurse Practitioner
DX: N18.9 Chronic kidney disease, unspecified (principal); E11.22 Type 2 diabetes mellitus with diabetic chronic kidney disease
CPT/HCPCS: 36415; 80053

== ENCOUNTER 2020-10-05 09:00 | Outpatient (CLI) | payer MEDICARE, BC ==
[2020-10-05 09:45] LABS: % IRON SATURATION 18 % (20-50); ALBUMIN 3.5 g/dL (3.2-5.5); ALBUMIN/GLOBULIN RATIO 0.9 (1.0-2.2); ALKALINE PHOSPHATASE 113 IU/L (42-121); ALT ALANINE AMINOTRANSFERASE 20 IU/L (10-60); AST ASPARTATE AMINOTRANSFERASE 28 IU/L (10-42); BILIRUBIN,TOTAL 0.5 mg/dL (0.2-1.0); BUN - BLOOD UREA NITROGEN 22 mg/dL (6-20); CALCIUM 9.1 mg/dL (8.5-10.3); CARBON DIOXIDE - CO2 28 mmol/L (21-32); CHLORIDE 100 mmol/L (101-111); CHOL/HDL RATIO 6.1 (<4.4); CHOLESTEROL 262 mg/dL; CREATININE 1.6 mg/dL (0.4-1.0); GLUCOSE 166 mg/dL (70-100); HDL CHOLESTEROL 43 mg/dL; IRON 72 ug/dL (28-170); SODIUM 140 mmol/L (135-145); TOTAL IRON BINDING CAPACITY 402 ug/dL (250-450); TOTAL PROTEIN 7.3 g/dL (6.7-8.2); TRANSFERRIN 287 mg/dL (192-382)
[2020-10-05 10:22] LABS: HEMOGLOBIN A1c% 7.1 % (4.27-6.07)
[2020-10-05 11:16] LABS: LDL CHOLESTEROL,DIRECT 66 mg/dL; LDLD/HDL RATIO 1.5 (<4.4)
== END 2020-10-05 09:01 | disposition home or self-care (01) ==
LOC: LAB 09:00
PROVIDERS: ATTEND Nurse Practitioner
DX: D50.9 Iron deficiency anemia, unspecified (principal); E78.5 Hyperlipidemia, unspecified; E11.22 Type 2 diabetes mellitus with diabetic chronic kidney disease; E55.9 Vitamin D deficiency, unspecified; N18.9 Chronic kidney disease, unspecified
CPT/HCPCS: 36415; 80053; 80061; 82306; 82607; 83036; 83540; 83721; 84466

== ENCOUNTER 2020-12-08 10:49 | Outpatient (CLI) | payer MEDICARE, BC ==
[2020-12-08 11:06] LABS: BASOPHILS # (AUTO) 0.1 10^3/uL (0.0-0.1); EOSINOPHILS # (AUTO) 0.3 10^3/uL (0.0-0.7); EOSINOPHILS % (AUTO) 2.8 %; HCT - HEMATOCRIT 40.4 % (37.0-47.0); HGB - HEMOGLOBIN 13.5 g/dL (12.0-16.0); LYMPHOCYTES # (AUTO) 2.4 10^3/uL (1.5-3.5); LYMPHOCYTES % (AUTO) 27.6 %; MEAN CORPUSCULAR HEMOGLOBIN 30.2 pg (27.0-31.0); MEAN CORPUSCULAR HGB CONC 33.4 g/dL (32.0-36.0); MEAN CORPUSCULAR VOLUME 90.4 fL (81.0-99.0); MEAN PLATELET VOLUME 9.8 fL (7.9-10.8); MONOCYTES # (AUTO) 0.5 10^3/uL (0.0-1.0); MONOCYTES % (AUTO) 6.1 %; NEUTROPHILS # (AUTO) 5.5 10^3/uL (1.5-6.6); NEUTROPHILS % (AUTO) 62.2 %; PLT - PLATELET COUNT 204 10^3/uL (130-450); RED BLOOD COUNT 4.47 10^6/uL (4.20-5.40); RED CELL DISTRIBUTION WIDTH 12.2 % (12.0-15.0); WHITE BLOOD COUNT 8.9 x10^3/uL (4.8-10.8)
[2020-12-08 11:24] LABS: ALBUMIN 3.4 g/dL (3.2-5.5); ALKALINE PHOSPHATASE 105 IU/L (42-121); ALT ALANINE AMINOTRANSFERASE 21 IU/L (10-60); AST ASPARTATE AMINOTRANSFERASE 32 IU/L (10-42); BILIRUBIN,TOTAL 0.6 mg/dL (0.2-1.0); BUN - BLOOD UREA NITROGEN 22 mg/dL (6-20); CALCIUM 9.4 mg/dL (8.5-10.3); CARBON DIOXIDE - CO2 26 mmol/L (21-32); CHLORIDE 100 mmol/L (101-111); CHOL/HDL RATIO 6.2 (<4.4); CHOLESTEROL 253 mg/dL; CREATININE 1.9 mg/dL (0.4-1.0); GFR - MDRD 26 (>89); GLUCOSE 182 mg/dL (70-100); HDL CHOLESTEROL 41 mg/dL; POTASSIUM 4.4 mmol/L (3.5-5.0); SODIUM 139 mmol/L (135-145); TOTAL PROTEIN 6.9 g/dL (6.7-8.2); TRIGLYCERIDES 690 mg/dL
[2020-12-08 11:47] LABS: LDL CHOLESTEROL,DIRECT 49 mg/dL; LDLD/HDL RATIO 1.2 (<4.4)
[2020-12-08 12:05] LABS: ESTIMATED AVERAGE GLUCOSE 151 mg/dL (70-100); HEMOGLOBIN A1c% 6.9 % (4.27-6.07)
== END 2020-12-08 10:50 | disposition home or self-care (01) ==
LOC: LAB 10:49
PROVIDERS: ATTEND Nurse Practitioner
DX: E11.22 Type 2 diabetes mellitus with diabetic chronic kidney disease (principal); N18.9 Chronic kidney disease, unspecified; D50.9 Iron deficiency anemia, unspecified; E78.5 Hyperlipidemia, unspecified; E55.9 Vitamin D deficiency, unspecified
CPT/HCPCS: 36415; 80053; 80061; 82306; 83036; 83721; 85025

== ENCOUNTER 2021-01-06 14:32 | Outpatient (CLI) | payer MEDICARE, BC ==
[2021-01-06 14:56] LABS: BASOPHILS # (AUTO) 0.1 10^3/uL (0.0-0.1); EOSINOPHILS # (AUTO) 0.3 10^3/uL (0.0-0.7); EOSINOPHILS % (AUTO) 3.9 %; HCT - HEMATOCRIT 35.8 % (37.0-47.0); HGB - HEMOGLOBIN 12.2 g/dL (12.0-16.0); LYMPHOCYTES # (AUTO) 1.9 10^3/uL (1.5-3.5); LYMPHOCYTES % (AUTO) 26.6 %; MEAN CORPUSCULAR HEMOGLOBIN 30.4 pg (27.0-31.0); MEAN CORPUSCULAR HGB CONC 34.1 g/dL (32.0-36.0); MEAN CORPUSCULAR VOLUME 89.3 fL (81.0-99.0); MEAN PLATELET VOLUME 10.7 fL (7.9-10.8); MONOCYTES # (AUTO) 0.4 10^3/uL (0.0-1.0); MONOCYTES % (AUTO) 5.9 %; NEUTROPHILS # (AUTO) 4.3 10^3/uL (1.5-6.6); NEUTROPHILS % (AUTO) 62.3 %; PLT - PLATELET COUNT 247 10^3/uL (130-450); RED BLOOD COUNT 4.01 10^6/uL (4.20-5.40); RED CELL DISTRIBUTION WIDTH 12.3 % (12.0-15.0)
[2021-01-06 15:15] LABS: CALCIUM 8.9 mg/dL (8.5-10.3); PHOSPHORUS 3.6 mg/dL (2.5-4.6); POTASSIUM 4.4 mmol/L (3.5-5.0)
== END 2021-01-06 14:33 | disposition home or self-care (01) ==
LOC: LAB 14:32
PROVIDERS: ATTEND Internal Medicine Nephrology
DX: D63.1 Anemia in chronic kidney disease (principal); N18.32 Chronic kidney disease, stage 3b; N25.81 Secondary hyperparathyroidism of renal origin
CPT/HCPCS: 36415; 80069; 82043; 83970; 85025

== ENCOUNTER 2021-01-11 13:58 | Outpatient (CLI) | payer MEDICARE, BC ==
[2021-01-11 14:22] LABS: POTASSIUM 4.4 mmol/L (3.5-5.0)
== END 2021-01-11 13:59 | disposition home or self-care (01) ==
LOC: LAB 13:58
PROVIDERS: ATTEND Internal Medicine Nephrology
DX: N18.32 Chronic kidney disease, stage 3b (principal)
CPT/HCPCS: 36415; 80048

== ENCOUNTER 2021-02-08 08:10 | Outpatient (CLI) | payer MEDICARE, BC ==
--- NOTE | 2021-02-08 09:27 | Ultrasound Report ---
PROCEDURE: Retroperitoneal INDICATIONS: ACUTE RENAL FAILURE TECHNIQUE: Real-time scanning was performed of the retroperitoneal organs, with image documentation. COMPARISON: Prior retroperitoneal ultrasound 06/24/2019 FINDINGS: Kidneys: Kidneys are normal in size. Right kidney measures 9.6 cm long; left kidney measures 12.5 c m long. Right renal cortical thickness is 1.2 cm; left renal cortical thickness is 1.6 cm. No solid masses, hydronephrosis, or nephrolithiasis. 2 cysts are noted at the superior right kidney measurin g up to 9 mm and 14 mm respectively. At the lower third renal cortex region a echogenic focus with sh adowing is consistent with nonobstructive calculus, right kidney, measuring up to 1.3 cm. Pancreas: Visualized portions of the pancreas are sonographically normal. Aorta: Visualized aorta is normal in caliber at 3 cm or less. Iliac arteries: Proximal common iliac arteries are normal in caliber at 2.5 cm or less. IVC: Intrahepatic inferior vena cava is patent. Miscellaneous: No free abdominal fluid. Prevoid bladder volume is 83.9 cc and postvoid residual is 0. IMPRESSION: No hydronephrosis or nephrolithiasis. 2 small upper pole right renal cortical cysts are noted. A sing le 1.3 cm nonobstructive lower pole right renal calculus also can be seen. Source of acute onset elmer l insufficiency is not identified. Reviewed by: Johnny Hale MD on 02/08/2021 9:26 AM PDT Approved by: Johnny Hale MD on 02/08/2021 9:26 AM PDT Station ID: [id number]
== END 2021-02-08 08:11 | disposition home or self-care (01) ==
LOC: DI 08:10
PROVIDERS: ATTEND Internal Medicine Nephrology
DX: N17.9 Acute kidney failure, unspecified (principal); N20.0 Calculus of kidney; Q61.02 Congenital multiple renal cysts

== ENCOUNTER 2021-05-24 09:13 | Outpatient (CLI) | payer MEDICARE, BC ==
[2021-05-24 09:55] LABS: BASOPHILS # (AUTO) 0.1 10^3/uL (0.0-0.1); EOSINOPHILS # (AUTO) 0.3 10^3/uL (0.0-0.7); EOSINOPHILS % (AUTO) 3.6 %; HCT - HEMATOCRIT 34.9 % (37.0-47.0); HGB - HEMOGLOBIN 11.6 g/dL (12.0-16.0); LYMPHOCYTES # (AUTO) 1.9 10^3/uL (1.5-3.5); LYMPHOCYTES % (AUTO) 26.2 %; MEAN CORPUSCULAR HEMOGLOBIN 30.5 pg (27.0-31.0); MEAN CORPUSCULAR HGB CONC 33.2 g/dL (32.0-36.0); MEAN CORPUSCULAR VOLUME 91.8 fL (81.0-99.0); MONOCYTES # (AUTO) 0.5 10^3/uL (0.0-1.0); MONOCYTES % (AUTO) 6.9 %; NEUTROPHILS # (AUTO) 4.5 10^3/uL (1.5-6.6); NEUTROPHILS % (AUTO) 62.2 %; PLT - PLATELET COUNT 204 10^3/uL (130-450); RED CELL DISTRIBUTION WIDTH 12.3 % (12.0-15.0); WHITE BLOOD COUNT 7.2 x10^3/uL (4.8-10.8)
[2021-05-24 10:12] LABS: ALBUMIN 3.5 g/dL (3.2-5.5); ALBUMIN/GLOBULIN RATIO 1.1 (1.0-2.2); ALKALINE PHOSPHATASE 85 IU/L (42-121); ALT ALANINE AMINOTRANSFERASE 21 IU/L (10-60); AST ASPARTATE AMINOTRANSFERASE 34 IU/L (10-42); BILIRUBIN,TOTAL 0.6 mg/dL (0.2-1.0); BUN - BLOOD UREA NITROGEN 28 mg/dL (6-20); CALCIUM 8.9 mg/dL (8.5-10.3); CARBON DIOXIDE - CO2 25 mmol/L (21-32); CHLORIDE 107 mmol/L (101-111); CHOL/HDL RATIO 3.6 (<4.4); CHOLESTEROL 142 mg/dL; CREATININE 2.2 mg/dL (0.4-1.0); GFR - MDRD 22 (>89); GLUCOSE 158 mg/dL (70-100); HDL CHOLESTEROL 39 mg/dL; LDL CHOLESTEROL,CALCULATED 53 mg/dL; LDL/HDL RATIO 1.4 (<4.4); POTASSIUM 4.8 mmol/L (3.5-5.0); SODIUM 140 mmol/L (135-145); TOTAL PROTEIN 6.8 g/dL (6.7-8.2); TRIGLYCERIDES 249 mg/dL; VLDL CHOLESTEROL 50 mg/dL
[2021-05-24 12:35] LABS: ESTIMATED AVERAGE GLUCOSE 134 mg/dL (70-100); HEMOGLOBIN A1c% 6.3 % (4.27-6.07)
== END 2021-05-24 09:14 | disposition home or self-care (01) ==
LOC: LAB 09:13
PROVIDERS: ATTEND Nurse Practitioner
DX: I12.9 Hypertensive chronic kidney disease with stage 1 through stage 4 chronic kidney disease, or unspecified chronic kidney disease (principal); E11.22 Type 2 diabetes mellitus with diabetic chronic kidney disease; N18.9 Chronic kidney disease, unspecified; D50.9 Iron deficiency anemia, unspecified; E55.9 Vitamin D deficiency, unspecified; E78.5 Hyperlipidemia, unspecified
CPT/HCPCS: 36415; 80053; 80061; 82306; 83036; 83721; 85025

== ENCOUNTER 2021-06-22 11:37 | Outpatient (CLI) | payer MEDICARE, BC ==
[2021-06-22 12:30] LABS: CALCIUM 8.9 mg/dL (8.5-10.3); CREATININE 2.4 mg/dL (0.4-1.0); POTASSIUM 4.8 mmol/L (3.5-5.0)
[2021-06-22 12:49] LABS: BILIRUBIN,URINE NEGATIVE (NEGATIVE); GLUCOSE, URINE (UA) 100 mg/dL (NEGATIVE); KETONES,URINE (UA) NEGATIVE (NEGATIVE); LEUKOCYTE ESTERASE, URINE TRACE (NEGATIVE); NITRITE,URINE POSITIVE (NEGATIVE); OCCULT BLOOD,URINE SMALL (NEGATIVE); PH,URINE 5.5 PH (5.0-7.5); PROTEIN,URINE >=300 mg/dL (NEGATIVE); UROBILINOGEN,URINE 0.2 (NORMAL) E.U./dL (NORMAL)
[2021-06-22 13:22] LABS: BACTERIA,URINE Few /HPF (None Seen); CLARITY,URINE SL. CLOUDY (CLEAR); SQUAMOUS EPITHELIAL CELL,UR FEW Squamous (<= Few)
[2021-06-22 14:31] LABS: CREATININE,URINE 170.2 mg/dL; MICROALBUM/CREATININE RATIO,UR 4645.1 ug/mg (<30.0); MICROALBUMIN,URINE 790.6 mg/dL (0-300.0)
[2021-07-03 00:17] LABS: KAPPA/LAMBDA LC FREE RATIO 1.55 (0.26-1.65)
== END 2021-06-22 11:38 | disposition home or self-care (01) ==
LOC: LAB 11:37
PROVIDERS: ATTEND Internal Medicine Nephrology
DX: N17.9 Acute kidney failure, unspecified (principal)
CPT/HCPCS: 36415; 80048; 81001; 81003; 81599; 82043; 82570; 83883; 84155; 84156; 84165; 84166; 86334; 86335; 87077; 87086; 87181

== ENCOUNTER 2021-07-10 10:42 | Outpatient (CLI) | payer MEDICARE, BC ==
[2021-07-10 11:17] LABS: ALBUMIN 3.5 g/dL (3.2-5.5); CALCIUM 8.9 mg/dL (8.5-10.3); CREATININE 2.7 mg/dL (0.4-1.0); PHOSPHORUS 4.7 mg/dL (2.5-4.6); POTASSIUM 4.3 mmol/L (3.5-5.0)
== END 2021-07-10 10:43 | disposition home or self-care (01) ==
LOC: LAB 10:42
PROVIDERS: ATTEND Internal Medicine Nephrology
DX: N18.4 Chronic kidney disease, stage 4 (severe) (principal)
CPT/HCPCS: 36415; 80069

== ENCOUNTER 2021-07-26 10:14 | Outpatient (CLI) | payer MEDICARE, BC ==
[2021-07-26 10:27] LABS: BASOPHILS # (AUTO) 0.1 10^3/uL (0.0-0.1); EOSINOPHILS # (AUTO) 0.2 10^3/uL (0.0-0.7); EOSINOPHILS % (AUTO) 2.9 %; HCT - HEMATOCRIT 38.6 % (37.0-47.0); HGB - HEMOGLOBIN 12.6 g/dL (12.0-16.0); LYMPHOCYTES # (AUTO) 2.8 10^3/uL (1.5-3.5); LYMPHOCYTES % (AUTO) 33.5 %; MEAN CORPUSCULAR HEMOGLOBIN 29.7 pg (27.0-31.0); MEAN CORPUSCULAR HGB CONC 32.6 g/dL (32.0-36.0); MEAN PLATELET VOLUME 9.7 fL (7.9-10.8); MONOCYTES # (AUTO) 0.6 10^3/uL (0.0-1.0); MONOCYTES % (AUTO) 7.5 %; NEUTROPHILS # (AUTO) 4.5 10^3/uL (1.5-6.6); PLT - PLATELET COUNT 190 10^3/uL (130-450); RED BLOOD COUNT 4.24 10^6/uL (4.20-5.40); RED CELL DISTRIBUTION WIDTH 12.3 % (12.0-15.0); WHITE BLOOD COUNT 8.3 x10^3/uL (4.8-10.8)
== END 2021-07-26 10:15 | disposition home or self-care (01) ==
LOC: LAB 10:14
PROVIDERS: ATTEND Internal Medicine Nephrology
DX: N18.4 Chronic kidney disease, stage 4 (severe) (principal)
CPT/HCPCS: 36415; 83970; 85025

== ENCOUNTER 2021-08-23 17:25 | Outpatient (CLI) | payer MEDICARE, BC | END 2021-08-23 17:26 | disposition short-term general hospital (02) | LOC: EMS 17:25 | DX: Z04.3 Encounter for examination and observation following other accident (principal); M25.551 Pain in right hip; M25.561 Pain in right knee | CPT/HCPCS: A0425; A0427 ==

== ENCOUNTER 2021-11-02 08:00 | Outpatient (CLI) | payer MEDICARE, BC ==
[2021-11-02 20:07] LABS: BASOPHILS # (AUTO) 0.1 10^3/uL (0.0-0.1); BASOPHILS % (AUTO) 0.9 %; EOSINOPHILS # (AUTO) 0.2 10^3/uL (0.0-0.7); EOSINOPHILS % (AUTO) 2.2 %; HCT - HEMATOCRIT 33.6 % (37.0-47.0); HGB - HEMOGLOBIN 10.7 g/dL (12.0-16.0); LYMPHOCYTES # (AUTO) 2.4 10^3/uL (1.5-3.5); LYMPHOCYTES % (AUTO) 30.1 %; MEAN CORPUSCULAR HEMOGLOBIN 31.8 pg (27.0-31.0); MEAN CORPUSCULAR HGB CONC 31.8 g/dL (32.0-36.0); MEAN PLATELET VOLUME 10.6 fL (7.9-10.8); MONOCYTES # (AUTO) 0.6 10^3/uL (0.0-1.0); NEUTROPHILS # (AUTO) 4.8 10^3/uL (1.5-6.6); NEUTROPHILS % (AUTO) 59.4 %; PLT - PLATELET COUNT 246 10^3/uL (130-450); RED BLOOD COUNT 3.36 10^6/uL (4.20-5.40); RED CELL DISTRIBUTION WIDTH 13.4 % (12.0-15.0)
[2021-11-02 20:25] LABS: CALCIUM 9.3 mg/dL (8.5-10.3); CREATININE 5.1 mg/dL (0.4-1.0); POTASSIUM 5.9 mmol/L (3.5-5.0)
== END 2021-11-02 23:59 ==
LOC: LAB.R 08:00
PROVIDERS: ATTEND Internal Medicine Nephrology
DX: N17.9 Acute kidney failure, unspecified (principal)
CPT/HCPCS: 80048; 85025

== ENCOUNTER 2021-11-06 08:00 | Outpatient (CLI) | payer MEDICARE, BC ==
[2021-11-06 16:12] LABS: CALCIUM 9.4 mg/dL (8.5-10.3)
[2021-11-06 16:25] LABS: POTASSIUM 6.1 mmol/L (3.5-5.0)
== END 2021-11-06 23:59 ==
LOC: LAB 08:00
DX: I12.9 Hypertensive chronic kidney disease with stage 1 through stage 4 chronic kidney disease, or unspecified chronic kidney disease (principal)
CPT/HCPCS: 36415; 80048

== ENCOUNTER 2021-11-09 08:00 | Outpatient (CLI) | payer MEDICARE, BC ==
[2021-11-09 15:23] LABS: CALCIUM 9.4 mg/dL (8.5-10.3); CREATININE 5.3 mg/dL (0.4-1.0); POTASSIUM 5.7 mmol/L (3.5-5.0)
[2021-11-09 15:27] LABS: HGB - HEMOGLOBIN 10.2 g/dL (12.0-16.0); MEAN CORPUSCULAR HEMOGLOBIN 32.1 pg (27.0-31.0); MEAN CORPUSCULAR HGB CONC 31.9 g/dL (32.0-36.0); MEAN CORPUSCULAR VOLUME 100.6 fL (81.0-99.0); MEAN PLATELET VOLUME 10.7 fL (7.9-10.8); RED BLOOD COUNT 3.18 10^6/uL (4.20-5.40); RED CELL DISTRIBUTION WIDTH 12.8 % (12.0-15.0); WHITE BLOOD COUNT 9.1 x10^3/uL (4.8-10.8)
== END 2021-11-09 23:59 ==
LOC: LAB.R 08:00
PROVIDERS: ATTEND Internal Medicine Nephrology
DX: N17.9 Acute kidney failure, unspecified (principal)
CPT/HCPCS: 80048; 85027

== ENCOUNTER 2021-11-13 08:00 | Outpatient (CLI) | payer MEDICARE, BC ==
[2021-11-13 20:06] LABS: CALCIUM 8.9 mg/dL (8.5-10.3); CREATININE 5.1 mg/dL (0.4-1.0)
== END 2021-11-13 23:59 ==
LOC: LAB.R 08:00
PROVIDERS: ATTEND Internal Medicine Nephrology
DX: N17.9 Acute kidney failure, unspecified (principal)
CPT/HCPCS: 80048

== ENCOUNTER 2021-11-16 08:00 | Outpatient (CLI) | payer MEDICARE, BC ==
[2021-11-16 15:23] LABS: CALCIUM 9.2 mg/dL (8.5-10.3); CREATININE 4.5 mg/dL (0.4-1.0); POTASSIUM 4.6 mmol/L (3.5-5.0)
[2021-11-16 19:46] LABS: HCT - HEMATOCRIT 32.7 % (37.0-47.0); HGB - HEMOGLOBIN 10.4 g/dL (12.0-16.0); MEAN CORPUSCULAR HEMOGLOBIN 31.8 pg (27.0-31.0); MEAN CORPUSCULAR HGB CONC 31.8 g/dL (32.0-36.0); MEAN PLATELET VOLUME 10.8 fL (7.9-10.8); RED BLOOD COUNT 3.27 10^6/uL (4.20-5.40); RED CELL DISTRIBUTION WIDTH 12.7 % (12.0-15.0); WHITE BLOOD COUNT 8.4 x10^3/uL (4.8-10.8)
== END 2021-11-16 23:59 ==
LOC: LAB.R 08:00
PROVIDERS: ATTEND Internal Medicine Nephrology
DX: N17.9 Acute kidney failure, unspecified (principal)
CPT/HCPCS: 80048; 85027

== ENCOUNTER 2021-11-20 08:00 | Outpatient (CLI) | payer MEDICARE, BC ==
[2021-11-20 15:17] LABS: CALCIUM 9.4 mg/dL (8.5-10.3); CREATININE 4.6 mg/dL (0.4-1.0)
== END 2021-11-20 23:59 ==
LOC: LAB.R 08:00
PROVIDERS: ATTEND Internal Medicine Nephrology
DX: N17.9 Acute kidney failure, unspecified (principal)
CPT/HCPCS: 80048

== ENCOUNTER 2021-11-23 08:00 | Outpatient (CLI) | payer MEDICARE, BC ==
[2021-11-23 20:43] LABS: CALCIUM 8.8 mg/dL (8.5-10.3); CREATININE 4.6 mg/dL (0.4-1.0); PHOSPHORUS 7.1 mg/dL (2.5-4.6); POTASSIUM 4.6 mmol/L (3.5-5.0)
== END 2021-11-23 23:59 ==
LOC: LAB.R 08:00
PROVIDERS: ATTEND Internal Medicine Nephrology
DX: N17.9 Acute kidney failure, unspecified (principal)
CPT/HCPCS: 80048; 84100; 85025

== ENCOUNTER 2021-11-23 12:09 | Outpatient (CLI) | payer MEDICARE, BC ==
[2021-11-23 12:24] LABS: BASOPHILS # (AUTO) 0.1 10^3/uL (0.0-0.1); BASOPHILS % (AUTO) 0.8 %; EOSINOPHILS # (AUTO) 0.3 10^3/uL (0.0-0.7); EOSINOPHILS % (AUTO) 4.4 %; HCT - HEMATOCRIT 28.8 % (37.0-47.0); HGB - HEMOGLOBIN 9.4 g/dL (12.0-16.0); LYMPHOCYTES # (AUTO) 1.9 10^3/uL (1.5-3.5); LYMPHOCYTES % (AUTO) 26.4 %; MEAN CORPUSCULAR HEMOGLOBIN 31.5 pg (27.0-31.0); MEAN CORPUSCULAR HGB CONC 32.6 g/dL (32.0-36.0); MEAN CORPUSCULAR VOLUME 96.6 fL (81.0-99.0); MEAN PLATELET VOLUME 10.5 fL (7.9-10.8); MONOCYTES # (AUTO) 0.6 10^3/uL (0.0-1.0); MONOCYTES % (AUTO) 8.4 %; NEUTROPHILS # (AUTO) 4.3 10^3/uL (1.5-6.6); NEUTROPHILS % (AUTO) 59.7 %; PLT - PLATELET COUNT 192 10^3/uL (130-450); RED BLOOD COUNT 2.98 10^6/uL (4.20-5.40); RED CELL DISTRIBUTION WIDTH 12.4 % (12.0-15.0); WHITE BLOOD COUNT 7.3 x10^3/uL (4.8-10.8)
== END 2021-11-23 12:10 | disposition home or self-care (01) ==
LOC: LAB.R 12:09
PROVIDERS: ATTEND Internal Medicine Nephrology
DX: N17.9 Acute kidney failure, unspecified (principal)
CPT/HCPCS: 80048; 85025

== ENCOUNTER 2021-11-27 11:15 | Outpatient (CLI) | payer MEDICARE, BC ==
[2021-11-27 14:54] LABS: CALCIUM 9.1 mg/dL (8.5-10.3); CREATININE 4.5 mg/dL (0.4-1.0); POTASSIUM 4.3 mmol/L (3.5-5.0)
== END 2021-11-27 23:59 | disposition home or self-care (01) ==
LOC: LAB.R 11:15
PROVIDERS: ATTEND Internal Medicine Nephrology
DX: N17.9 Acute kidney failure, unspecified (principal)
CPT/HCPCS: 80048

== ENCOUNTER 2021-11-30 15:00 | Outpatient (CLI) | payer MEDICARE, BC ==
[2021-11-30 20:05] LABS: HCT - HEMATOCRIT 29.4 % (37.0-47.0); HGB - HEMOGLOBIN 9.6 g/dL (12.0-16.0); MEAN CORPUSCULAR HEMOGLOBIN 31.7 pg (27.0-31.0); MEAN CORPUSCULAR HGB CONC 32.7 g/dL (32.0-36.0); MEAN PLATELET VOLUME 10.8 fL (7.9-10.8); RED BLOOD COUNT 3.03 10^6/uL (4.20-5.40); RED CELL DISTRIBUTION WIDTH 12.3 % (12.0-15.0); WHITE BLOOD COUNT 8.1 x10^3/uL (4.8-10.8)
[2021-11-30 20:09] LABS: CALCIUM 8.9 mg/dL (8.5-10.3); CREATININE 4.9 mg/dL (0.4-1.0); POTASSIUM 5.7 mmol/L (3.5-5.0)
== END 2021-11-30 23:59 | disposition home or self-care (01) ==
LOC: LAB.R 15:00
PROVIDERS: ATTEND Internal Medicine Nephrology
DX: N17.9 Acute kidney failure, unspecified (principal)
CPT/HCPCS: 80048; 85027

== ENCOUNTER 2021-12-05 13:30 | Outpatient (CLI) | payer MEDICARE, BC ==
[2021-12-05 21:01] LABS: CREATININE 4.8 mg/dL (0.4-1.0); POTASSIUM 4.5 mmol/L (3.5-5.0)
== END 2021-12-05 23:59 | disposition home or self-care (01) ==
LOC: LAB.R 13:30
PROVIDERS: ATTEND Internal Medicine Nephrology
DX: N17.9 Acute kidney failure, unspecified (principal)
CPT/HCPCS: 80048

== ENCOUNTER 2021-12-07 11:25 | Outpatient (CLI) | payer MEDICARE, BC ==
[2021-12-07 11:39] LABS: HCT - HEMATOCRIT 29.8 % (37.0-47.0); HGB - HEMOGLOBIN 9.8 g/dL (12.0-16.0); MEAN CORPUSCULAR HEMOGLOBIN 31.3 pg (27.0-31.0); MEAN CORPUSCULAR HGB CONC 32.9 g/dL (32.0-36.0); MEAN CORPUSCULAR VOLUME 95.2 fL (81.0-99.0); MEAN PLATELET VOLUME 10.5 fL (7.9-10.8); RED BLOOD COUNT 3.13 10^6/uL (4.20-5.40); RED CELL DISTRIBUTION WIDTH 12.3 % (12.0-15.0); WHITE BLOOD COUNT 7.5 x10^3/uL (4.8-10.8)
[2021-12-07 12:29] LABS: CALCIUM 8.7 mg/dL (8.5-10.3); CREATININE 4.6 mg/dL (0.4-1.0); POTASSIUM 4.4 mmol/L (3.5-5.0)
== END 2021-12-07 11:26 | disposition home or self-care (01) ==
LOC: LAB.R 11:25
PROVIDERS: ATTEND Internal Medicine Nephrology
DX: N17.9 Acute kidney failure, unspecified (principal)
CPT/HCPCS: 80048; 85027; 86900; 86901

== ENCOUNTER 2021-12-11 11:45 | Outpatient (CLI) | payer MEDICARE, BC ==
[2021-12-11 12:09] LABS: CALCIUM 9.7 mg/dL (8.5-10.3); CREATININE 4.5 mg/dL (0.4-1.0); POTASSIUM 4.8 mmol/L (3.5-5.0)
== END 2021-12-11 11:46 | disposition home or self-care (01) ==
LOC: LAB.R 11:45
PROVIDERS: ATTEND Internal Medicine Nephrology
DX: N17.9 Acute kidney failure, unspecified (principal)
CPT/HCPCS: 80048

== ENCOUNTER 2021-12-18 15:33 | Outpatient (CLI) | payer MEDICARE, BC | END 2021-12-18 15:34 | disposition home or self-care (01) | LOC: LAB.R 15:33 | PROVIDERS: ATTEND Internal Medicine Nephrology | DX: Z53.9 Procedure and treatment not carried out, unspecified reason (principal) | CPT/HCPCS: 80048; 85025 ==

== ENCOUNTER 2021-12-19 08:00 | Outpatient (CLI) | payer MEDICARE, BC ==
[2021-12-19 19:54] LABS: BASOPHILS # (AUTO) 0.1 10^3/uL (0.0-0.1); BASOPHILS % (AUTO) 1.1 %; EOSINOPHILS # (AUTO) 0.2 10^3/uL (0.0-0.7); EOSINOPHILS % (AUTO) 2.2 %; HCT - HEMATOCRIT 32.3 % (37.0-47.0); HGB - HEMOGLOBIN 10.6 g/dL (12.0-16.0); LYMPHOCYTES # (AUTO) 2.1 10^3/uL (1.5-3.5); LYMPHOCYTES % (AUTO) 29.8 %; MEAN CORPUSCULAR HEMOGLOBIN 30.8 pg (27.0-31.0); MEAN CORPUSCULAR HGB CONC 32.8 g/dL (32.0-36.0); MEAN CORPUSCULAR VOLUME 93.9 fL (81.0-99.0); MEAN PLATELET VOLUME 11.1 fL (7.9-10.8); MONOCYTES # (AUTO) 0.5 10^3/uL (0.0-1.0); MONOCYTES % (AUTO) 6.9 %; NEUTROPHILS # (AUTO) 4.3 10^3/uL (1.5-6.6); NEUTROPHILS % (AUTO) 59.9 %; PLT - PLATELET COUNT 251 10^3/uL (130-450); RED BLOOD COUNT 3.44 10^6/uL (4.20-5.40); RED CELL DISTRIBUTION WIDTH 12.8 % (12.0-15.0); WHITE BLOOD COUNT 7.1 x10^3/uL (4.8-10.8)
[2021-12-19 20:13] LABS: CALCIUM 8.8 mg/dL (8.5-10.3); CREATININE 4.3 mg/dL (0.4-1.0); POTASSIUM 3.6 mmol/L (3.5-5.0)
== END 2021-12-19 23:59 ==
LOC: LAB.R 08:00
PROVIDERS: ATTEND Internal Medicine Nephrology
DX: N17.9 Acute kidney failure, unspecified (principal)
CPT/HCPCS: 80048; 85025

== ENCOUNTER 2021-12-25 08:00 | Outpatient (CLI) | payer MEDICARE, BC ==
[2021-12-25 20:05] LABS: HCT - HEMATOCRIT 34.3 % (37.0-47.0); HGB - HEMOGLOBIN 11.3 g/dL (12.0-16.0); MEAN CORPUSCULAR HEMOGLOBIN 30.8 pg (27.0-31.0); MEAN CORPUSCULAR HGB CONC 32.9 g/dL (32.0-36.0); MEAN CORPUSCULAR VOLUME 93.5 fL (81.0-99.0); MEAN PLATELET VOLUME 10.9 fL (7.9-10.8); RED BLOOD COUNT 3.67 10^6/uL (4.20-5.40); RED CELL DISTRIBUTION WIDTH 12.7 % (12.0-15.0); WHITE BLOOD COUNT 8.9 x10^3/uL (4.8-10.8)
[2021-12-25 20:06] LABS: CALCIUM 9.2 mg/dL (8.5-10.3); CREATININE 3.9 mg/dL (0.4-1.0); POTASSIUM 4.5 mmol/L (3.5-5.0)
== END 2021-12-25 23:59 ==
LOC: LAB.R 08:00
PROVIDERS: ATTEND Internal Medicine Nephrology
DX: N17.9 Acute kidney failure, unspecified (principal)
CPT/HCPCS: 80048; 85027

== ENCOUNTER 2022-01-24 10:39 | Outpatient (CLI) | payer MEDICARE, BC ==
[2022-01-24 11:35] LABS: % IRON SATURATION 32 % (20-50); IRON 105 ug/dL (28-170); TOTAL IRON BINDING CAPACITY 330 ug/dL (250-450); TRANSFERRIN 236 mg/dL (192-382)
[2022-01-24 11:48] LABS: THYROID STIMULATING HORMONE 2.09 uIU/mL (0.34-5.60)
[2022-01-24 11:56] LABS: FERRITIN 124.7 ng/mL (11.0-306.8)
[2022-01-24 11:59] LABS: FOLATE 17.72 ng/mL (5.90 - >24.8)
== END 2022-01-24 10:40 | disposition home or self-care (01) ==
LOC: LAB 10:39
PROVIDERS: ATTEND Nurse Practitioner
DX: Z98.84 Bariatric surgery status (principal)
CPT/HCPCS: 36415; 82306; 82607; 82728; 82746; 83540; 84425; 84443; 84466; 84590

== ENCOUNTER 2022-02-01 09:59 | Outpatient (CLI) | payer MEDICARE, BC ==
[2022-02-01 10:17] LABS: BASOPHILS # (AUTO) 0.1 10^3/uL (0.0-0.1); BASOPHILS % (AUTO) 1.1 %; EOSINOPHILS # (AUTO) 0.2 10^3/uL (0.0-0.7); EOSINOPHILS % (AUTO) 3.6 %; HCT - HEMATOCRIT 28.8 % (37.0-47.0); HGB - HEMOGLOBIN 9.6 g/dL (12.0-16.0); LYMPHOCYTES # (AUTO) 2.4 10^3/uL (1.5-3.5); MEAN CORPUSCULAR HGB CONC 33.3 g/dL (32.0-36.0); MEAN CORPUSCULAR VOLUME 92.9 fL (81.0-99.0); MEAN PLATELET VOLUME 9.8 fL (7.9-10.8); MONOCYTES # (AUTO) 0.5 10^3/uL (0.0-1.0); MONOCYTES % (AUTO) 7.3 %; NEUTROPHILS # (AUTO) 3.3 10^3/uL (1.5-6.6); NEUTROPHILS % (AUTO) 50.8 %; PLT - PLATELET COUNT 214 10^3/uL (130-450); RED CELL DISTRIBUTION WIDTH 13.6 % (12.0-15.0); WHITE BLOOD COUNT 6.4 x10^3/uL (4.8-10.8)
[2022-02-01 10:21] LABS: BILIRUBIN,URINE NEGATIVE (NEGATIVE); CLARITY,URINE CLOUDY (CLEAR); GLUCOSE, URINE (UA) NEGATIVE (NEGATIVE); KETONES,URINE (UA) NEGATIVE (NEGATIVE); LEUKOCYTE ESTERASE, URINE SMALL (NEGATIVE); NITRITE,URINE POSITIVE (NEGATIVE); OCCULT BLOOD,URINE TRACE-INTA (NEGATIVE); PH,URINE 5.5 PH (5.0-7.5); PROTEIN,URINE 100 mg/dL (NEGATIVE); UROBILINOGEN,URINE 0.2 (NORMAL) E.U./dL (NORMAL)
[2022-02-01 10:29] LABS: BACTERIA,URINE Moderate /HPF (None Seen); RBC,URINE 0-5 /HPF (0-5); SQUAMOUS EPITHELIAL CELL,UR FEW Squamous (<= Few); WBC CLUMPS,URINE PRESENT; WBC,URINE >25 /HPF (0-5)
[2022-02-01 10:30] LABS: ALBUMIN 3.6 g/dL (3.2-5.5); CALCIUM 8.6 mg/dL (8.5-10.3); CREATININE 3.8 mg/dL (0.4-1.0); PHOSPHORUS 5.9 mg/dL (2.5-4.6); POTASSIUM 4.6 mmol/L (3.5-5.0)
[2022-02-01 11:18] LABS: CREATININE,URINE 79.9 mg/dL; MICROALBUM/CREATININE RATIO,UR 2162.7 ug/mg (<30.0); MICROALBUMIN,URINE 172.8 mg/dL (0-300.0)
== END 2022-02-01 10:00 | disposition home or self-care (01) ==
LOC: LAB 09:59
PROVIDERS: ATTEND Internal Medicine Nephrology
DX: N18.5 Chronic kidney disease, stage 5 (principal)
CPT/HCPCS: 36415; 80069; 81001; 82043; 82306; 82570; 83970; 85025; 87077; 87086; 87181

== ENCOUNTER 2022-03-01 08:20 | Outpatient (CLI) | payer MEDICARE, BC ==
[2022-03-01 08:44] LABS: BASOPHILS # (AUTO) 0.1 10^3/uL (0.0-0.1); EOSINOPHILS # (AUTO) 0.4 10^3/uL (0.0-0.7); EOSINOPHILS % (AUTO) 5.4 %; HCT - HEMATOCRIT 30.5 % (37.0-47.0); HGB - HEMOGLOBIN 10.2 g/dL (12.0-16.0); LYMPHOCYTES # (AUTO) 2.6 10^3/uL (1.5-3.5); LYMPHOCYTES % (AUTO) 36.8 %; MEAN CORPUSCULAR HEMOGLOBIN 31.2 pg (27.0-31.0); MEAN CORPUSCULAR HGB CONC 33.4 g/dL (32.0-36.0); MEAN CORPUSCULAR VOLUME 93.3 fL (81.0-99.0); MONOCYTES # (AUTO) 0.4 10^3/uL (0.0-1.0); MONOCYTES % (AUTO) 5.3 %; NEUTROPHILS # (AUTO) 3.7 10^3/uL (1.5-6.6); NEUTROPHILS % (AUTO) 51.4 %; PLT - PLATELET COUNT 215 10^3/uL (130-450); RED BLOOD COUNT 3.27 10^6/uL (4.20-5.40); RED CELL DISTRIBUTION WIDTH 12.7 % (12.0-15.0); WHITE BLOOD COUNT 7.2 x10^3/uL (4.8-10.8)
[2022-03-01 08:56] LABS: ALBUMIN 3.7 g/dL (3.2-5.5); PHOSPHORUS 4.8 mg/dL (2.5-4.6); POTASSIUM 4.4 mmol/L (3.5-5.0)
[2022-03-01 10:04] LABS: BILIRUBIN,URINE NEGATIVE (NEGATIVE); CLARITY,URINE CLOUDY (CLEAR); GLUCOSE, URINE (UA) NEGATIVE (NEGATIVE); KETONES,URINE (UA) NEGATIVE (NEGATIVE); LEUKOCYTE ESTERASE, URINE MODERATE (NEGATIVE); NITRITE,URINE NEGATIVE (NEGATIVE); OCCULT BLOOD,URINE TRACE-INTA (NEGATIVE); PROTEIN,URINE >=300 mg/dL (NEGATIVE); UROBILINOGEN,URINE 0.2 (NORMAL) E.U./dL (NORMAL); WBC CLUMPS,URINE PRESENT; WBC,URINE >25 /HPF (0-5)
[2022-03-01 10:05] LABS: BACTERIA,URINE Moderate /HPF (None Seen); RBC,URINE 0-5 /HPF (0-5); SQUAMOUS EPITHELIAL CELL,UR NONE SEEN (<= Few)
[2022-03-01 10:47] LABS: CREATININE,URINE 84.4 mg/dL; MICROALBUM/CREATININE RATIO,UR 2132.7 ug/mg (<30.0)
== END 2022-03-01 08:21 | disposition home or self-care (01) ==
LOC: LAB 08:20
PROVIDERS: ATTEND Internal Medicine Nephrology
DX: N18.5 Chronic kidney disease, stage 5 (principal)
CPT/HCPCS: 36415; 80069; 81001; 82043; 82306; 82570; 83970; 85025; 87077; 87086; 87181

== ENCOUNTER 2022-03-27 08:28 | Outpatient (CLI) | payer MEDICARE, BC ==
[2022-03-27 08:45] LABS: BASOPHILS # (AUTO) 0.1 10^3/uL (0.0-0.1); EOSINOPHILS # (AUTO) 0.4 10^3/uL (0.0-0.7); HCT - HEMATOCRIT 30.7 % (37.0-47.0); HGB - HEMOGLOBIN 10.1 g/dL (12.0-16.0); LYMPHOCYTES # (AUTO) 3.2 10^3/uL (1.5-3.5); LYMPHOCYTES % (AUTO) 34.6 %; MEAN CORPUSCULAR HEMOGLOBIN 30.2 pg (27.0-31.0); MEAN CORPUSCULAR HGB CONC 32.9 g/dL (32.0-36.0); MEAN CORPUSCULAR VOLUME 91.9 fL (81.0-99.0); MEAN PLATELET VOLUME 10.4 fL (7.9-10.8); MONOCYTES # (AUTO) 0.6 10^3/uL (0.0-1.0); MONOCYTES % (AUTO) 6.5 %; NEUTROPHILS % (AUTO) 53.6 %; PLT - PLATELET COUNT 207 10^3/uL (130-450); RED BLOOD COUNT 3.34 10^6/uL (4.20-5.40); RED CELL DISTRIBUTION WIDTH 12.8 % (12.0-15.0); WHITE BLOOD COUNT 9.3 x10^3/uL (4.8-10.8)
[2022-03-27 08:49] LABS: CALCIUM 9.1 mg/dL (8.5-10.3); CREATININE 4.1 mg/dL (0.4-1.0); POTASSIUM 4.2 mmol/L (3.5-5.0)
[2022-03-27 09:16] LABS: ESTIMATED AVERAGE GLUCOSE 82 mg/dL (70-100); HEMOGLOBIN A1c% 4.5 % (4.27-6.07)
== END 2022-03-27 08:29 | disposition home or self-care (01) ==
LOC: LAB 08:28
PROVIDERS: ATTEND Internal Medicine Nephrology
DX: N17.9 Acute kidney failure, unspecified (principal); E11.22 Type 2 diabetes mellitus with diabetic chronic kidney disease
CPT/HCPCS: 36415; 80048; 83036; 85025

== ENCOUNTER 2022-04-27 13:08 | Outpatient (CLI) | payer MEDICARE, BC | END 2022-04-27 13:09 | disposition home or self-care (01) | LOC: MAC.MOP 13:08 | PROVIDERS: ATTEND Nurse Practitioner | DX: I48.0 Paroxysmal atrial fibrillation (principal); N17.9 Acute kidney failure, unspecified | CPT/HCPCS: 36415; 80048; 85025; 93246 ==

== ENCOUNTER 2022-04-27 13:36 | Outpatient (CLI) | payer MEDICARE, BC ==
[2022-04-27 13:49] LABS: BASOPHILS # (AUTO) 0.1 10^3/uL (0.0-0.1); EOSINOPHILS # (AUTO) 0.3 10^3/uL (0.0-0.7); EOSINOPHILS % (AUTO) 3.7 %; HCT - HEMATOCRIT 31.5 % (37.0-47.0); HGB - HEMOGLOBIN 10.6 g/dL (12.0-16.0); LYMPHOCYTES # (AUTO) 1.9 10^3/uL (1.5-3.5); LYMPHOCYTES % (AUTO) 26.8 %; MEAN CORPUSCULAR HEMOGLOBIN 30.4 pg (27.0-31.0); MEAN CORPUSCULAR HGB CONC 33.7 g/dL (32.0-36.0); MEAN CORPUSCULAR VOLUME 90.3 fL (81.0-99.0); MEAN PLATELET VOLUME 9.6 fL (7.9-10.8); MONOCYTES # (AUTO) 0.4 10^3/uL (0.0-1.0); MONOCYTES % (AUTO) 5.5 %; NEUTROPHILS # (AUTO) 4.4 10^3/uL (1.5-6.6); NEUTROPHILS % (AUTO) 62.7 %; PLT - PLATELET COUNT 204 10^3/uL (130-450); RED BLOOD COUNT 3.49 10^6/uL (4.20-5.40); RED CELL DISTRIBUTION WIDTH 12.8 % (12.0-15.0); WHITE BLOOD COUNT 7.1 x10^3/uL (4.8-10.8)
[2022-04-27 13:58] LABS: CALCIUM 8.8 mg/dL (8.5-10.3); CREATININE 4.1 mg/dL (0.4-1.0); POTASSIUM 4.6 mmol/L (3.5-5.0)
== END 2022-04-27 13:37 | disposition home or self-care (01) ==
LOC: LAB 13:36
PROVIDERS: ATTEND Internal Medicine Nephrology
DX: N17.9 Acute kidney failure, unspecified (principal)
CPT/HCPCS: 36415; 80048; 85025

== ENCOUNTER 2022-06-01 10:30 | Outpatient (CLI) | payer MEDICARE, BC | END 2022-06-01 23:59 | disposition home or self-care (01) | LOC: MAC.MOP 10:30 | PROVIDERS: ATTEND Internal Medicine Nephrology | DX: R00.1 Bradycardia, unspecified (principal); I47.1 Supraventricular tachycardia; I49.8 Other specified cardiac arrhythmias; I49.1 Atrial premature depolarization | CPT/HCPCS: 93248 ==

== ENCOUNTER 2022-07-03 09:09 | Outpatient (CLI) | payer MEDICARE, BC ==
--- NOTE | 2022-07-03 12:09 | Ultrasound Report ---
PROCEDURE: Duplex Ext Veins Right INDICATIONS: RIGHT LEG SWELLING TECHNIQUE: Real-time imaging, as well as color and pulse Doppler interrogation, were performed of the lower extr emity deep veins from the inguinal ligament to the popliteal fossa. COMPARISON: None. FINDINGS: There is filling defect within a short segment of one of the peroneal veins at the level of mid calf with poor compressibility. Rest of the deep veins are normally compressible, and free of intraluminal thrombus. Color and pulse Doppler demonstrate normal phasic intraluminal flow. There is normal aug mentation response to distal compression maneuver. Incidentally noted of atherosclerotic plaque seen throughout visualized right lower extremity vessels . IMPRESSION: 1. Nonocclusive venous thrombosis within one of the 2 peroneal veins in mid calf level. 2. No evidence of DVT in rest of the visualized right lower extremity veins. Significant atherosclero tic disease in right lower extremity vessels. Reviewed by: Joe Gomez MD on 07/03/2022 12:08 PM PDT Approved by: Joe Gomez MD on 07/03/2022 12:08 PM PDT Station ID: [id number]
== END 2022-07-03 09:10 | disposition home or self-care (01) ==
LOC: DI 09:09
PROVIDERS: ATTEND Internal Medicine Nephrology
DX: I82.451 Acute embolism and thrombosis of right peroneal vein (principal); I70.201 Unspecified atherosclerosis of native arteries of extremities, right leg; N17.9 Acute kidney failure, unspecified
CPT/HCPCS: 36415; 80048; 85025

== ENCOUNTER 2022-07-03 10:03 | Outpatient (CLI) | payer MEDICARE, BC ==
[2022-07-03 10:18] LABS: BASOPHILS # (AUTO) 0.1 10^3/uL (0.0-0.1); EOSINOPHILS # (AUTO) 0.3 10^3/uL (0.0-0.7); EOSINOPHILS % (AUTO) 4.5 %; HCT - HEMATOCRIT 31.4 % (37.0-47.0); HGB - HEMOGLOBIN 10.8 g/dL (12.0-16.0); LYMPHOCYTES # (AUTO) 2.1 10^3/uL (1.5-3.5); LYMPHOCYTES % (AUTO) 28.3 %; MEAN CORPUSCULAR HEMOGLOBIN 30.6 pg (27.0-31.0); MEAN CORPUSCULAR HGB CONC 34.4 g/dL (32.0-36.0); MEAN PLATELET VOLUME 9.4 fL (7.9-10.8); MONOCYTES # (AUTO) 0.5 10^3/uL (0.0-1.0); MONOCYTES % (AUTO) 6.6 %; NEUTROPHILS # (AUTO) 4.4 10^3/uL (1.5-6.6); NEUTROPHILS % (AUTO) 59.3 %; PLT - PLATELET COUNT 211 10^3/uL (130-450); RED BLOOD COUNT 3.53 10^6/uL (4.20-5.40); WHITE BLOOD COUNT 7.3 x10^3/uL (4.8-10.8)
[2022-07-03 10:28] LABS: CALCIUM 9.3 mg/dL (8.5-10.3); CREATININE 3.7 mg/dL (0.4-1.0); POTASSIUM 4.7 mmol/L (3.5-5.0)
== END 2022-07-03 10:04 | disposition home or self-care (01) ==
LOC: LAB 10:03
PROVIDERS: ATTEND Internal Medicine Nephrology
DX: N17.9 Acute kidney failure, unspecified (principal)
CPT/HCPCS: 36415; 80048; 85025

== ENCOUNTER 2022-08-24 10:47 | Outpatient (CLI) | payer MEDICARE, BC ==
[2022-08-24 11:00] LABS: BASOPHILS # (AUTO) 0.1 10^3/uL (0.0-0.1); EOSINOPHILS # (AUTO) 0.2 10^3/uL (0.0-0.7); EOSINOPHILS % (AUTO) 2.7 %; HCT - HEMATOCRIT 36.4 % (37.0-47.0); HGB - HEMOGLOBIN 11.9 g/dL (12.0-16.0); LYMPHOCYTES # (AUTO) 2.3 10^3/uL (1.5-3.5); LYMPHOCYTES % (AUTO) 27.8 %; MEAN CORPUSCULAR HEMOGLOBIN 29.6 pg (27.0-31.0); MEAN CORPUSCULAR HGB CONC 32.7 g/dL (32.0-36.0); MEAN CORPUSCULAR VOLUME 90.5 fL (81.0-99.0); MEAN PLATELET VOLUME 9.3 fL (7.9-10.8); MONOCYTES # (AUTO) 0.5 10^3/uL (0.0-1.0); MONOCYTES % (AUTO) 5.9 %; NEUTROPHILS # (AUTO) 5.2 10^3/uL (1.5-6.6); NEUTROPHILS % (AUTO) 62.5 %; PLT - PLATELET COUNT 215 10^3/uL (130-450); RED BLOOD COUNT 4.02 10^6/uL (4.20-5.40); RED CELL DISTRIBUTION WIDTH 12.8 % (12.0-15.0); WHITE BLOOD COUNT 8.3 x10^3/uL (4.8-10.8)
[2022-08-24 11:24] LABS: ALBUMIN 3.5 g/dL (3.2-5.5); ALKALINE PHOSPHATASE 78 IU/L (42-121); ALT ALANINE AMINOTRANSFERASE 14 IU/L (10-60); AST ASPARTATE AMINOTRANSFERASE 23 IU/L (10-42); BILIRUBIN,TOTAL 0.5 mg/dL (0.2-1.0); BUN - BLOOD UREA NITROGEN 38 mg/dL (6-20); CARBON DIOXIDE - CO2 23 mmol/L (21-32); CHLORIDE 106 mmol/L (101-111); CHOL/HDL RATIO 4.4 (<4.4); CHOLESTEROL 244 mg/dL; CREATININE 3.8 mg/dL (0.4-1.0); GFR - MDRD 12 (>89); GLUCOSE 101 mg/dL (70-100); HDL CHOLESTEROL 56 mg/dL; LDL CHOLESTEROL,CALCULATED 147 mg/dL; LDL/HDL RATIO 2.6 (<4.4); POTASSIUM 4.5 mmol/L (3.5-5.0); SODIUM 141 mmol/L (135-145); TOTAL PROTEIN 7.1 g/dL (6.7-8.2); TRIGLYCERIDES 207 mg/dL; VLDL CHOLESTEROL 41 mg/dL
[2022-08-24 11:32] LABS: THYROID STIMULATING HORMONE 2.19 uIU/mL (0.34-5.60)
[2022-08-24 11:44] LABS: ESTIMATED AVERAGE GLUCOSE 88 mg/dL (70-100); HEMOGLOBIN A1c% 4.7 % (4.27-6.07)
--- NOTE | 2022-08-24 14:42 | XRAY Report ---
PROCEDURE: Knee 4 View RT INDICATIONS: KNEE PAIN RIGHT TECHNIQUE: 4 views of the right knee(s) were acquired. COMPARISON: None. FINDINGS: Bones: No fractures or dislocations. No suspicious bony lesions. Right knee arthroplasty is presen t. Hardware is intact without evidence of hardware fracture or periprosthetic lucency to suggest loos ening. Soft tissues: No joint effusion. No suspicious soft tissue calcifications. IMPRESSION: Right knee arthroplasty is present with intact hardware. Reviewed by: Maryellen Joshi MD on 08/24/2022 2:41 PM PST Approved by: Maryellen Joshi MD on 08/24/2022 2:41 PM PST Station ID: [id number]
== END 2022-08-24 10:48 | disposition home or self-care (01) ==
LOC: DI 10:47
PROVIDERS: ATTEND Nurse Practitioner
DX: M25.561 Pain in right knee (principal); E11.22 Type 2 diabetes mellitus with diabetic chronic kidney disease; N18.9 Chronic kidney disease, unspecified; E78.5 Hyperlipidemia, unspecified; Z96.651 Presence of right artificial knee joint
CPT/HCPCS: 36415; 80053; 80061; 81599; 82043; 82570; 83036; 83721; 84443; 85025

== ENCOUNTER 2022-12-04 08:00 | Outpatient (CLI) | payer MEDICARE, BC ==
[2022-12-04 09:34] LABS: BASOPHILS # (AUTO) 0.1 10^3/uL (0.0-0.1); BASOPHILS % (AUTO) 0.6 %; EOSINOPHILS # (AUTO) 0.2 10^3/uL (0.0-0.7); EOSINOPHILS % (AUTO) 2.8 %; LYMPHOCYTES # (AUTO) 2.4 10^3/uL (1.5-3.5); LYMPHOCYTES % (AUTO) 27.4 %; MEAN CORPUSCULAR HEMOGLOBIN 28.3 pg (27.0-31.0); MEAN CORPUSCULAR HGB CONC 29.2 g/dL (32.0-36.0); MEAN CORPUSCULAR VOLUME 96.7 fL (81.0-99.0); MEAN PLATELET VOLUME 9.8 fL (7.9-10.8); MONOCYTES # (AUTO) 0.5 10^3/uL (0.0-1.0); MONOCYTES % (AUTO) 6.2 %; NEUTROPHILS # (AUTO) 5.4 10^3/uL (1.5-6.6); NEUTROPHILS % (AUTO) 62.5 %; PLT - PLATELET COUNT 276 10^3/uL (130-450); RED BLOOD COUNT 1.84 10^6/uL (4.20-5.40); RED CELL DISTRIBUTION WIDTH 13.6 % (12.0-15.0); WHITE BLOOD COUNT 8.7 x10^3/uL (4.8-10.8)
[2022-12-04 09:43] LABS: HCT - HEMATOCRIT 17.8 % (37.0-47.0); HGB - HEMOGLOBIN 5.2 g/dL (12.0-16.0)
[2022-12-04 09:53] LABS: CALCIUM 8.4 mg/dL (8.5-10.3); CREATININE 5.2 mg/dL (0.4-1.0); POTASSIUM 4.7 mmol/L (3.5-5.0)
== END 2022-12-04 23:59 | disposition home or self-care (01) ==
LOC: LAB 08:00
PROVIDERS: ATTEND Internal Medicine Nephrology
DX: N17.9 Acute kidney failure, unspecified (principal)
CPT/HCPCS: 36415; 80048; 85025

== ENCOUNTER 2022-12-17 11:15 | Outpatient (CLI) | payer MEDICARE, BC ==
[2022-12-17 11:39] LABS: ABSOLUTE RETICS # AUTO 0.043 10^6/uL (0.020-0.110); BASOPHILS # (AUTO) 0.1 10^3/uL (0.0-0.1); BASOPHILS % (AUTO) 1.3 %; EOSINOPHILS # (AUTO) 0.3 10^3/uL (0.0-0.7); EOSINOPHILS % (AUTO) 4.2 %; HGB - HEMOGLOBIN 9.2 g/dL (12.0-16.0); LYMPHOCYTES # (AUTO) 2.2 10^3/uL (1.5-3.5); LYMPHOCYTES % (AUTO) 29.6 %; MEAN CORPUSCULAR HEMOGLOBIN 28.9 pg (27.0-31.0); MEAN CORPUSCULAR HGB CONC 30.7 g/dL (32.0-36.0); MEAN CORPUSCULAR VOLUME 94.3 fL (81.0-99.0); MEAN PLATELET VOLUME 10.5 fL (7.9-10.8); MONOCYTES # (AUTO) 0.4 10^3/uL (0.0-1.0); MONOCYTES % (AUTO) 5.7 %; NEUTROPHILS # (AUTO) 4.4 10^3/uL (1.5-6.6); NEUTROPHILS % (AUTO) 58.9 %; PLT - PLATELET COUNT 221 10^3/uL (130-450); RED BLOOD COUNT 3.18 10^6/uL (4.20-5.40); RED CELL DISTRIBUTION WIDTH 12.7 % (12.0-15.0); RETICULOCYTE COUNT % (AUTO) 1.36 % (0.5-2.3); WHITE BLOOD COUNT 7.5 x10^3/uL (4.8-10.8)
[2022-12-17 11:56] LABS: % IRON SATURATION 10 % (20-50); IRON 39 ug/dL (28-170); TOTAL IRON BINDING CAPACITY 384 ug/dL (250-450); TRANSFERRIN 274 mg/dL (192-382)
[2022-12-17 13:06] LABS: ESTIMATED AVERAGE GLUCOSE 88 mg/dL (70-100); HEMOGLOBIN A1c% 4.7 % (4.27-6.07)
== END 2022-12-17 11:16 | disposition home or self-care (01) ==
LOC: LAB 11:15
PROVIDERS: ATTEND Nurse Practitioner
DX: E55.9 Vitamin D deficiency, unspecified (principal); E11.22 Type 2 diabetes mellitus with diabetic chronic kidney disease; N18.5 Chronic kidney disease, stage 5; D64.9 Anemia, unspecified
CPT/HCPCS: 36415; 82306; 82728; 83036; 83540; 84466; 85025; 85045

== ENCOUNTER 2023-02-05 11:24 | Outpatient (CLI) | payer MEDICARE, BC ==
[2023-02-05 11:54] LABS: ALBUMIN 3.6 g/dL (3.2-5.5); CALCIUM 8.5 mg/dL (8.5-10.3); CREATININE 4.6 mg/dL (0.4-1.0); PHOSPHORUS 5.2 mg/dL (2.5-4.6); POTASSIUM 5.1 mmol/L (3.5-5.0)
== END 2023-02-05 11:25 | disposition home or self-care (01) ==
LOC: LAB 11:24
PROVIDERS: ATTEND Internal Medicine Nephrology
DX: N18.5 Chronic kidney disease, stage 5 (principal)
CPT/HCPCS: 36415; 80069

== ENCOUNTER 2023-03-27 13:12 | Outpatient (CLI) | payer MEDICARE, BC | END 2023-03-27 23:59 | disposition home or self-care (01) | LOC: LAB.S 13:12 | PROVIDERS: ATTEND Physician Assistant Medical | DX: L03.115 Cellulitis of right lower limb (principal) | CPT/HCPCS: 87070; 87181; 87205 ==

== ENCOUNTER 2023-05-28 13:05 | Outpatient (CLI) | payer MEDICARE, BC ==
[2023-05-28 19:48] LABS: BASOPHILS # (AUTO) 0.1 10^3/uL (0.0-0.1); BASOPHILS % (AUTO) 1.1 %; EOSINOPHILS # (AUTO) 0.3 10^3/uL (0.0-0.7); EOSINOPHILS % (AUTO) 3.5 %; HCT - HEMATOCRIT 33.2 % (37.0-47.0); HGB - HEMOGLOBIN 10.4 g/dL (12.0-16.0); LYMPHOCYTES # (AUTO) 1.8 10^3/uL (1.5-3.5); LYMPHOCYTES % (AUTO) 24.4 %; MEAN CORPUSCULAR HEMOGLOBIN 29.6 pg (27.0-31.0); MEAN CORPUSCULAR HGB CONC 31.3 g/dL (32.0-36.0); MEAN CORPUSCULAR VOLUME 94.6 fL (81.0-99.0); MEAN PLATELET VOLUME 12.1 fL (7.9-10.8); MONOCYTES # (AUTO) 0.4 10^3/uL (0.0-1.0); MONOCYTES % (AUTO) 5.5 %; NEUTROPHILS # (AUTO) 4.8 10^3/uL (1.5-6.6); NEUTROPHILS % (AUTO) 65.4 %; PLT - PLATELET COUNT 188 10^3/uL (130-450); RED BLOOD COUNT 3.51 10^6/uL (4.20-5.40); RED CELL DISTRIBUTION WIDTH 13.3 % (12.0-15.0); WHITE BLOOD COUNT 7.3 x10^3/uL (4.8-10.8)
[2023-05-28 20:05] LABS: ALBUMIN 3.6 g/dL (3.2-5.5); CREATININE 5.2 mg/dL (0.6-1.3); POTASSIUM 4.6 mmol/L (3.5-4.5)
== END 2023-05-28 13:06 | disposition home or self-care (01) ==
LOC: LAB.S 13:05
PROVIDERS: ATTEND Internal Medicine Nephrology
DX: N18.5 Chronic kidney disease, stage 5 (principal)
CPT/HCPCS: 36415; 80069; 82306; 83970; 85025

== ENCOUNTER 2023-09-06 08:34 | Outpatient (CLI) | payer MEDICARE, BC ==
[2023-09-06 08:52] LABS: BASOPHILS # (AUTO) 0.1 10^3/uL (0.0-0.1); BASOPHILS % (AUTO) 1.1 %; EOSINOPHILS # (AUTO) 0.3 10^3/uL (0.0-0.7); EOSINOPHILS % (AUTO) 4.1 %; HGB - HEMOGLOBIN 10.4 g/dL (12.0-16.0); LYMPHOCYTES # (AUTO) 2.2 10^3/uL (1.5-3.5); LYMPHOCYTES % (AUTO) 33.1 %; MEAN CORPUSCULAR HEMOGLOBIN 28.7 pg (27.0-31.0); MEAN CORPUSCULAR HGB CONC 31.5 g/dL (32.0-36.0); MEAN CORPUSCULAR VOLUME 90.9 fL (81.0-99.0); MEAN PLATELET VOLUME 10.6 fL (7.9-10.8); MONOCYTES # (AUTO) 0.4 10^3/uL (0.0-1.0); MONOCYTES % (AUTO) 6.2 %; NEUTROPHILS # (AUTO) 3.7 10^3/uL (1.5-6.6); NEUTROPHILS % (AUTO) 55.2 %; PLT - PLATELET COUNT 179 10^3/uL (130-450); RED BLOOD COUNT 3.63 10^6/uL (4.20-5.40); RED CELL DISTRIBUTION WIDTH 12.9 % (12.0-15.0); WHITE BLOOD COUNT 6.6 x10^3/uL (4.8-10.8)
[2023-09-06 09:04] LABS: CREATININE 5.8 mg/dL (0.6-1.3); PHOSPHORUS 4.8 mg/dL (2.5-5.0); POTASSIUM 3.9 mmol/L (3.5-4.5)
[2023-09-06 09:27] LABS: FERRITIN 75.2 ng/mL (11.0-306.8)
== END 2023-09-06 08:35 | disposition home or self-care (01) ==
LOC: LAB 08:34
PROVIDERS: ATTEND Internal Medicine Nephrology
DX: E11.9 Type 2 diabetes mellitus without complications (principal); N05.9 Unspecified nephritic syndrome with unspecified morphologic changes; N25.81 Secondary hyperparathyroidism of renal origin; E83.30 Disorder of phosphorus metabolism, unspecified; D70.9 Neutropenia, unspecified; D63.1 Anemia in chronic kidney disease; D50.0 Iron deficiency anemia secondary to blood loss (chronic); D51.9 Vitamin B12 deficiency anemia, unspecified
CPT/HCPCS: 36415; 80048; 82607; 82728; 82746; 83540; 83970; 84100; 84466; 85025

== ENCOUNTER 2023-10-08 11:41 | Outpatient (CLI) | payer MEDICARE, BC ==
[2023-10-08 12:09] LABS: ALBUMIN 3.5 g/dL (3.2-5.5); ALBUMIN/GLOBULIN RATIO 1.3 (1.0-2.2); BILIRUBIN,TOTAL 0.4 mg/dL (0.2-1.0); CALCIUM 8.4 mg/dL (8.5-10.3); CREATININE 5.9 mg/dL (0.6-1.3); PHOSPHORUS 7.1 mg/dL (2.5-5.0); POTASSIUM 4.9 mmol/L (3.5-4.5); TOTAL PROTEIN 6.3 g/dL (6.4-8.9)
== END 2023-10-08 11:42 | disposition home or self-care (01) ==
LOC: LAB 11:41
PROVIDERS: ATTEND Internal Medicine Nephrology
DX: E11.9 Type 2 diabetes mellitus without complications (principal); N05.9 Unspecified nephritic syndrome with unspecified morphologic changes; N25.81 Secondary hyperparathyroidism of renal origin; E83.30 Disorder of phosphorus metabolism, unspecified
CPT/HCPCS: 36415; 80053; 83970; 84100

== ENCOUNTER 2024-01-08 08:49 | Outpatient (CLI) | payer MEDICARE, BC ==
[2024-01-08 09:02] LABS: BASOPHILS # (AUTO) 0.1 10^3/uL (0.0-0.1); BASOPHILS % (AUTO) 1.2 %; EOSINOPHILS # (AUTO) 0.2 10^3/uL (0.0-0.7); EOSINOPHILS % (AUTO) 2.9 %; HCT - HEMATOCRIT 45.8 % (37.0-47.0); HGB - HEMOGLOBIN 13.6 g/dL (12.0-16.0); LYMPHOCYTES # (AUTO) 2.2 10^3/uL (1.5-3.5); LYMPHOCYTES % (AUTO) 29.4 %; MEAN CORPUSCULAR HEMOGLOBIN 29.1 pg (27.0-31.0); MEAN CORPUSCULAR HGB CONC 29.7 g/dL (32.0-36.0); MEAN CORPUSCULAR VOLUME 97.9 fL (81.0-99.0); MEAN PLATELET VOLUME 10.5 fL (7.9-10.8); MONOCYTES # (AUTO) 0.4 10^3/uL (0.0-1.0); MONOCYTES % (AUTO) 5.5 %; NEUTROPHILS # (AUTO) 4.6 10^3/uL (1.5-6.6); NEUTROPHILS % (AUTO) 60.7 %; PLT - PLATELET COUNT 180 10^3/uL (130-450); RED BLOOD COUNT 4.68 10^6/uL (4.20-5.40); RED CELL DISTRIBUTION WIDTH 17.6 % (12.0-15.0); WHITE BLOOD COUNT 7.6 x10^3/uL (4.8-10.8)
[2024-01-08 09:14] LABS: ALBUMIN 2.5 g/dL (3.2-5.5); ALKALINE PHOSPHATASE 100 IU/L (42-121); ALT ALANINE AMINOTRANSFERASE 16 IU/L (10-60); AST ASPARTATE AMINOTRANSFERASE 30 IU/L (10-42); BILIRUBIN,TOTAL 0.6 mg/dL (0.2-1.0); BUN - BLOOD UREA NITROGEN 17 mg/dL (6-20); CALCIUM 8.5 mg/dL (8.5-10.3); CARBON DIOXIDE - CO2 29 mmol/L (21-32); CHLORIDE 104 mmol/L (101-111); CHOL/HDL RATIO 1.6 (<4.4); CHOLESTEROL 101 mg/dL; CREATININE 4.4 mg/dL (0.6-1.3); GFR - MDRD 10 (>89); GLUCOSE 80 mg/dL (74-104); HDL CHOLESTEROL 63 mg/dL; LDL CHOLESTEROL,CALCULATED 20 mg/dL; LDL/HDL RATIO 0.3 (<4.4); POTASSIUM 3.6 mmol/L (3.5-4.5); SODIUM 139 mmol/L (135-145); TRIGLYCERIDES 88 mg/dL (48-352); VLDL CHOLESTEROL 18 mg/dL
== END 2024-01-08 08:50 | disposition home or self-care (01) ==
LOC: LAB 08:49
PROVIDERS: ATTEND Nurse Practitioner
DX: E78.5 Hyperlipidemia, unspecified (principal); D64.9 Anemia, unspecified
CPT/HCPCS: 36415; 80053; 80061; 83721; 85025

== ENCOUNTER 2024-01-11 11:45 | Outpatient (CLI) | payer MEDICARE, BC ==
--- NOTE | 2024-01-11 19:24 | Ultrasound Report ---
PROCEDURE: Duplex Ext Veins Right INDICATIONS: R LEG PAIN TECHNIQUE: Real-time imaging, as well as color and pulse Doppler interrogation, were performed of the lower extr emity deep veins from the inguinal ligament to the popliteal fossa. Attempted visualization of the ca lf veins was performed. COMPARISON: Right lower extremity venous ultrasound on July 03, 2022. FINDINGS: The deep veins are normally compressible, and free of intraluminal thrombus. Color and pu lse Doppler demonstrate normal phasic intraluminal flow. There is normal augmentation response to di stal compression maneuver. Previously seen nonocclusive thrombus in the peroneal vein is no longer s een. Incidental note of significant atherosclerotic plaque in the visualized arterial vasculature. IMPRESSION: 1.No deep venous thrombosis of the visualized lower extremity. Previously seen nonocclusive thrombus in the peroneal vein is no longer seen. 2.Incidental note of significant atherosclerotic plaque in the visualized arterial vasculature. Reviewed by: Lopez Aleman MD on 01/11/2024 7:23 PM PDT Approved by: Lopez Aleman MD on 01/11/2024 7:23 PM PDT Station ID: [id number]
== END 2024-01-11 11:46 | disposition home or self-care (01) ==
LOC: DI 11:45
PROVIDERS: ATTEND Nurse Practitioner
DX: M79.604 Pain in right leg (principal)

== ENCOUNTER 2024-05-21 22:33 | Outpatient (CLI) | payer MEDICARE, BC | END 2024-05-21 22:34 | disposition critical access hospital (66) | LOC: EMS 22:33 | DX: R51.9 Headache, unspecified (principal); R22.0 Localized swelling, mass and lump, head; M25.562 Pain in left knee; R53.1 Weakness; W18.39XA Other fall on same level, initial encounter; Y92.009 Unspecified place in unspecified non-institutional (private) residence as the place of occurrence of the external cause; N18.6 End stage renal disease | CPT/HCPCS: A0425; A0427 ==

== ENCOUNTER 2024-05-21 23:02 | Emergency (ER) | payer MEDICARE, BC ==
--- NOTE | 2024-05-21 23:37 | XRAY Report ---
PROCEDURE: Knee 4+V LT INDICATIONS: fall knee pain TECHNIQUE: 2 views of the knee(s) were acquired. COMPARISON: 08/24/2020 FINDINGS: Bones: Comminuted, angulated fracture of the distal femoral shaft, likely extending to the femoral c omponent of the knee arthroplasty. Soft tissues: Large knee joint effusion. No suspicious soft tissue calcifications or masses. IMPRESSION: Comminuted, angulated fracture of the distal femoral shaft, likely extending to the femoral component of the knee arthroplasty. Reviewed by: Damien Taveras MD on 05/21/2024 11:35 PM PDT Approved by: Damien Taveras MD on 05/21/2024 11:35 PM PDT Station ID: [id number]
[2024-05-21] MEDS: ONDANSETRON 4 MG/2 ML VIAL IVP STA (23:41)
[2024-05-21] MEDS: HYDROmorphone 1 MG/ML CARPUJECT IVP STA (23:46)
--- NOTE | 2024-05-22 00:40 | ED Physician Documentation ---
PD HPI LOWER EXT INJURY - Stated complaint Stated Complaint: GLF - Chief complaint Chief Complaint: Trauma Ext - History obtained from History obtained from: Patient, Family (son) - History of Present Illness PD HPI LOW EXT INJURY LOCATION: Right, Knee Type of injury: Fall Where injury occurred: Home Timing - onset: Today Improved by: Rest Worsened by: Moving, Palpating Associated symptoms: Swelling Contributing factors: Prior ortho surgery, Prosthetic joint Similar symptoms before: Has not had sx before Recently seen: Other (has stopped dialysis 8 days ago and is in hospice.) - Additional information Additional information: Lara Pena is a 73-year-old female who has end-stage renal disease and was on dialysis until about 8 days ago. She has discontinued dialysis and has gone into hospice. She was on dialysis for about a year and complained of a poor quality of life. Today she was in her home and had a fall and she appears to have broken her leg. She has asked for transport to the hospital for evaluation. She is in extreme pain and received fentanyl en-route. Review of Systems Unable to obtain: Confused, Other (in extreme pain son indicates she has decreased appetite and is not drinking much fluid. Moving about less.) PD PAST MEDICAL HISTORY - Past Medical History Past Medical History: Yes Cardiovascular: Hypertension, High cholesterol Respiratory: None, Sleep apnea Endocrine/Autoimmune: Type 2 diabetes GI: GERD : Renal insuffiency HEENT: Chronic vision loss Psych: Depression Musculoskeletal: Rheumatoid arthritis Derm: None - Past Surgical History Past Surgical History: Yes General: Bowel surgery Ortho: Carpal Tunnel surgery /3RD MATE: Other - Present Medications Home Medications: Ambulatory Orders Medication Instructions Recorded Confirmed Omeprazole [PriLOSEC] 20 mg PO DAILY 10/28/17 01/03/23 Blood Pressure Test Kit-Large 1 [facility] TID #1 kit 01/28/18 01/03/23 [Blood Pressure Monitor] Apixaban [Eliquis] 5 mg PO DAILY 01/03/23 01/03/23 Aspirin [Aspirin EC] 81 mg PO DAILY 01/03/23 01/03/23 Calcium Acetate 667 mg PO TID 01/03/23 01/03/23 Magnesium Oxide [Magnesium] 400 mg PO DAILY 01/03/23 01/03/23 Multivitamin 1 tab PO DAILY 01/03/23 01/03/23 amLODIPine [Norvasc] 10 mg PO DAILY 01/03/23 01/03/23 - Allergies Allergies/Adverse Reactions: Allergies Allergy/AdvReac Type Severity Reaction Status Date / Time Penicillins Allergy Hives Verified 05/21/24 23:10 - Social History Does the pt smoke?: No Smoking Status: Never smoker Does the pt drink ETOH?: No Does the pt have substance abuse?: No - Immunizations Immunizations are current?: Yes PD ED PE NORMAL - Vitals Vital signs reviewed: Yes (wide pulse pressure with low blood pressure) - General General: Well developed/nourished, Other (appears to be in pain with crying and moaning. ) - Cardiac Cardiac: RRR, No murmur - Respiratory Respiratory: No respiratory distress, Other (diminished breath sounds. ) - Abdomen Abdomen: Soft, Non tender, Other (large pannus) - Derm Derm: Normal color, Warm and dry - Extremities Extremities: Other (The left lower ext is angulated at the knee. There is a weeping sore to the lower calf. Any movement causes pain. ) - Neuro Neuro: message clerk 2-12 intact, No motor deficit, No sensory deficit, Normal speech Eye Opening: Spontaneous Motor: Obeys Commands Verbal: Confused GCS Score: 14 - Psych Psych: Other (mood is painful affect is blunted. ) Results - Vitals Vitals: Vital Signs - 24 hr 05/21/24 05/21/24 05/22/24 23:10 23:30 00:00 Temperature 37.2 C Heart Rate 60 60 59 L Respiratory 12 14 16 Rate Blood Pressure 101/44 L 99/39 L 80/29 L O2 Saturation 92 99 92 If not protocol 2 : Oxygen Flow, liters/minute 05/22/24 05/22/24 05/22/24 00:20 01:00 01:30 Temperature Heart Rate 90 59 L 60 Respiratory 15 16 Rate Blood Pressure 80/40 L 96/48 L O2 Saturation 92 92 96 If not protocol 2 2 2 : Oxygen Flow, liters/minute 05/22/24 05/22/24 05/22/24 02:00 02:30 03:24 Temperature Heart Rate 60 60 92 Respiratory 12 11 L 12 Rate Blood Pressure 87/49 L 97/28 L 100/76 O2 Saturation 94 94 100 If not protocol 2 2 2 : Oxygen Flow, liters/minute 05/22/24 05/22/24 05/22/24 04:30 05:00 05:30 Temperature Heart Rate 91 91 90 Respiratory 13 15 15 Rate Blood Pressure 85/52 L 80/46 L 82/41 L O2 Saturation 95 94 95 If not protocol 2 2 2 : Oxygen Flow, liters/minute 05/22/24 05/22/24 06:00 06:30 Temperature Heart Rate 90 90 Respiratory 12 12 Rate Blood Pressure 77/36 L 77/45 L O2 Saturation 95 94 If not protocol 2 2 : Oxygen Flow, liters/minute Oxygen O2 Source Nasal cannula - Labs Labs: Laboratory Tests 05/22/24 05/22/24 01:41 01:41 WBC 14.5 H RBC 2.72 L Hgb 7.7 L Hct 27.4 L MCV 100.7 H MCH 28.3 MCHC 28.1 L RDW 14.9 Plt Count 260 MPV 10.1 Neut # (Auto) 12.2 H Lymph # (Auto) 1.2 L Mcdonald # (Auto) 0.9 Eos # (Auto) 0.0 Baso # (Auto) 0.1 Absolute Nucleated RBC 0.00 Nucleated RBC % 0.0 Sodium 136 Potassium 7.3 H* Chloride 105 Carbon Dioxide 13 L Anion Gap 18.0 H BUN 109 H* Creatinine 13.5 H* Estimated GFR (MDRD) 3 L Glucose 99 Calcium 8.4 L Total Bilirubin 0.4 AST 16 ALT 10 Alkaline Phosphatase 84 Total Protein 6.5 Albumin 3.0 L Globulin 3.5 Albumin/Globulin Ratio 0.9 L Lipase 26 - Rads (name of study) L knee Relevant Findings:: Prelim report reviewed (Comminuted angulated fracture of the distal femoral shaft, likely extending to the femoral component of the knee arthroplasty.), EMP independent interpretation of test, See rad report Procedures - IVC sono (time) 0100 Bedside IVC sono: IVC measures (cm) (1.56), Euvolemia PD Medical Decision Making - ED course Complexity details: reviewed old records, reviewed results, re-evaluated patient, considered differential, d/w patient, d/w family Reviewed Lab Results: We reviewed a complete blood count showing an elevated white blood cell count of 14.5 and a reduced hemoglobin of 7.7 and hematocrit of 27.4 these are markedly decreased from the patient's prior of 13.6 hemoglobin on January 2024 and hematocrit of 45.8 in January 2024. Platelets are normal. Chemistries show critical potassium at 7.3 a BUN of 109 creatinine of 13.5 and a low calcium of 8.4 my interpretation of these laboratory results with marked elevated potassium BUN and creatinine indicate the patient's refusal of dialysis will likely lead to her in a short period of time. ED course: 73-year-old Kodi Pena presents to the emergency department with a ground-level fall and a fracture to her left distal femur. She has comminution and angulation. She is not a candidate for surgery and she has refused dialysis. She appears to be near with markedly elevated potassium. In the emergency department she is hypotensive has a normal volume and is in pain. We were able to improve her pain with use of intravenous Dilaudid and we were able to straighten her leg out and place it into a knee immobilizer after administering Dilaudid and Ativan. The patient tolerated this well she appeared much more comfortable. I consulted the hospice nurse and she will contact the hospice doctor for admission to a general inpatient bed for planned senescence. I discussed the case with the patient's son at length multiple times as the situation developed and a plan was made for care of the patient under her wishes. At shift change a bed is not available and her care is turned over to Dr. Hamilton. Departure - Departure Disposition: [facility] DC/Daniella Clinical Impression: Hyperkalemia, End of life care Fracture of distal end of left femur Qualifiers: Encounter type: initial encounter Fracture type: closed Fracture morphology: other fracture Qualified Code(s): S72.492A - Other fracture of lower end of left femur, initial encounter for closed fracture Condition: Critical Forms: PCP List
[2024-05-22 01:45] LABS: BASOPHILS # (AUTO) 0.1 10^3/uL (0.0-0.1); BASOPHILS % (AUTO) 0.5 %; EOSINOPHILS % (AUTO) 0.1 %; HCT - HEMATOCRIT 27.4 % (37.0-47.0); HGB - HEMOGLOBIN 7.7 g/dL (12.0-16.0); LYMPHOCYTES # (AUTO) 1.2 10^3/uL (1.5-3.5); LYMPHOCYTES % (AUTO) 8.1 %; MEAN CORPUSCULAR HEMOGLOBIN 28.3 pg (27.0-31.0); MEAN CORPUSCULAR HGB CONC 28.1 g/dL (32.0-36.0); MEAN CORPUSCULAR VOLUME 100.7 fL (81.0-99.0); MEAN PLATELET VOLUME 10.1 fL (7.9-10.8); MONOCYTES # (AUTO) 0.9 10^3/uL (0.0-1.0); MONOCYTES % (AUTO) 6.1 %; NEUTROPHILS # (AUTO) 12.2 10^3/uL (1.5-6.6); NEUTROPHILS % (AUTO) 84.5 %; PLT - PLATELET COUNT 260 10^3/uL (130-450); RED BLOOD COUNT 2.72 10^6/uL (4.20-5.40); RED CELL DISTRIBUTION WIDTH 14.9 % (12.0-15.0); WHITE BLOOD COUNT 14.5 x10^3/uL (4.8-10.8)
[2024-05-22 02:03] LABS: ALBUMIN/GLOBULIN RATIO 0.9 (1.0-2.2); BILIRUBIN,TOTAL 0.4 mg/dL (0.2-1.0); CALCIUM 8.4 mg/dL (8.5-10.3); CREATININE 13.5 mg/dL (0.6-1.3); POTASSIUM 7.3 mmol/L (3.5-4.5); TOTAL PROTEIN 6.5 g/dL (6.4-8.9)
[2024-05-22] MEDS: HYDROmorphone 1 MG/ML CARPUJECT IVP STA ×3 (02:07→07:33)
[2024-05-22] MEDS: LORazepam 2 MG/ML VIAL IVP STA (03:25)
[2024-05-22] MEDS ORDERED: HYDROmorphone 1 MG/ML CARPUJECT IVP PRN (07:18)
--- NOTE | 2024-05-22 07:20 | ED Physician Documentation ---
ED Addendum - Addendum Addendum: 05/22/24 07:[address] Pereyra at this time at shift change. Briefly this is a 73-year-old woman who is on hospice with end-stage renal disease and now has a badly fractured leg. On my personal evaluation at this time she appears mildly uncomfortable and I ordered 1 more milligram of Dilaudid with a as needed order as I am not sure when she will be leaving the department. I understand the son has been involved but he is not currently at the bedside. Plan to have the hospice physician consults but notes that although she is probably appropriate for a GIP admission there are no beds in the hospital at this time as the hospital is full. 05/22/24 11:09 She became progressively bradycardic and stopped breathing. Son at the bedside and time of was 11:05 AM. Hospice folks at the bedside as well. Disposition Diagnoses: 1. End-stage renal disease 2. Hyperkalemia 3. Left distal femur fracture
[2024-05-22 08:29] VITALS: BP 72/35; O2SAT 95
== END 2024-05-22 11:05 | disposition expired ==
LOC: EDUNIT# → ED 23:02
DX: S72.402A Unspecified fracture of lower end of left femur, initial encounter for closed fracture (principal); W18.30XA Fall on same level, unspecified, initial encounter; Y92.009 Unspecified place in unspecified non-institutional (private) residence as the place of occurrence of the external cause; E11.22 Type 2 diabetes mellitus with diabetic chronic kidney disease; I12.0 Hypertensive chronic kidney disease with stage 5 chronic kidney disease or end stage renal disease; N18.6 End stage renal disease; E87.5 Hyperkalemia
CPT/HCPCS: 36415; 73564; 80053; 83690; 85025; 96374; 96375; 96376; 99285; J1170; J2060